=== PATIENT | male | born 1955 | race Caucasian/White ===

== ENCOUNTER 2019-03-07 11:47 | Inpatient (IN) | payer MEDICARE, OTHER ==
[2019-03-07] VITALS (10 sets, daily range): BP systolic 97–133; BP diastolic 51–83
[~2019-03-07] VITALS: Ht 180.3 cm; Wt 153.9 kg
[~2019-03-07 11:47] MED LIST: epiNEPHrine 0.1mg/ml 10ml syringe ONE; sodium bicarbonate (8.4%) inj. 1 MEQ/ML ML ONE
[2019-03-07] MEDS ORDERED: propofol 1000mg/100ml bottle 100 ML IV ONE (12:01)
[2019-03-07 12:05] LABS: ABG BASE EXCESS -18.8 mmol/L (-2.0-3.0); ABG HCO3 16.5 mmol/L (22.0-26.0); ABG OXYGEN SATURATION 99.3 % (95-98); ABG PCO2 (T) 93.7 mmHg (35.0-45.0); ABG PH (T) 6.864 (7.350-7.450); ABG PO2 (T) 404.4 mmHg (83-108); ALLEN'S TEST Positive; FCOHb 0.8 % (0.5-1.5); FMetHb 0.4 % (0.3-1.12); FO2Hb 98.1 % (94-100); MINUTE VOLUME 5 L/min; PEEP 8 cm H2O; RESPIRATORY RATE 18 b/min; RESPIRATORY RATE (OBSERVED) 18 b/min; TIDAL VOLUME 254 mL; TOTAL HEMOGLOBIN 14.8 G/dl (14.0-17.9)
--- NOTE | 2019-03-07 12:07 | NUR ---
dr. Bello and Balta at bedside.
--- NOTE | 2019-03-07 12:09 | NUR ---
patient on [address]
[2019-03-07] MEDS ORDERED: albuterol 2.5 MG/3 ML nebule NEB ONE ×3 (12:10→12:55)
[2019-03-07] MEDS ORDERED: albuterol 2.5 MG/3 ML nebule ONE (12:10)
--- NOTE | 2019-03-07 12:10 | NUR ---
dr. wick at bedside to start right IJ,Dr. Gifford to start right art line.
[2019-03-07] MEDS ORDERED: Neutra Phos packet PO PRN (12:15)
[2019-03-07] MEDS ORDERED: acetaminophen 325mg tablet PO PRN ×2 (12:15)
[2019-03-07] MEDS ORDERED: ondansetron/PF 4mg/2ml inj IV PRN (12:15)
[2019-03-07] MEDS ORDERED: potassium Cl 20mEq/100mL bag 100 ML IV PRN (12:15)
[2019-03-07] MEDS ORDERED: potassium Cl 20 mEq SR tablet PO PRN ×2 (12:15)
[2019-03-07] MEDS ORDERED: albuterol 2.5 MG/3 ML nebule NEB PRN ×2 (12:15→12:50)
[2019-03-07] MEDS ORDERED: morphine 4 MG/ML inj SYRINge IV PRN (12:15)
[2019-03-07] MEDS ORDERED: magnesium 4gm in 100ml NS 100 ML IV PRN (12:15)
[2019-03-07] MEDS ORDERED: morphine 2 MG/ML inj. syringe IV PRN (12:15)
[2019-03-07] MEDS ORDERED: magnesium Cl slow-release 64mg tablet PO PRN (12:15)
[2019-03-07] MEDS ORDERED: pantoprazole 40 MG vial IV SCH (12:15)
[2019-03-07] MEDS ORDERED: vancomycin/NS 1 GM ADD-VANTAGE 250 ML IV ONE (12:15)
[2019-03-07] MEDS ORDERED: ipratropium/albuterol 3ml nebule NEB PRN (12:15)
[2019-03-07] MEDS ORDERED: sodium phosphate inj. 15 MMOL in dextrose 5%-water 150 ML IV PRN (12:15)
[2019-03-07] MEDS ORDERED: acetaminophen 650mg rectal suppository RC PRN (12:15)
[2019-03-07] MEDS ORDERED: CefTRIAXone 2gm/D5W 50ml 50 ML IV ONE (12:15)
[2019-03-07] MEDS ORDERED: sodium phosphate inj. 30 MMOL in dextrose 5%-water 250 ML IV PRN (12:15)
[2019-03-07 12:23] LABS: CLARITY,URINE CLEAR (Clear); COLOR,URINE YELLOW (Yellow); GLUCOSE, URINE 100 mg/dl (Neg); KETONES,URINE NEGATIVE (Neg); LEUKOCYTE ESTERASE ,URINE NEGATIVE (Neg); NITRITES, URINE NEGATIVE (Neg); OCCULT BLOOD,URINE TRACE-INTACT (Neg); PH,URINE 7.5 (4.8-8.0); PROTEIN,URINE 100 mg/dl (Neg); UROBILINOGEN,URINE 0.2 E.U/dL (0.2-1.0)
[2019-03-07 12:24] LABS: UA COLLECTION TYPE FOLEY CATH
[2019-03-07 12:25] LABS: BASOPHILS # (AUTO) 0.1 X10'3 (0-0.2); BASOPHILS % (AUTO) 0.4 % (0-1); EOSINOPHILS # (AUTO) 0.5 X10'3 (0-0.9); EOSINOPHILS % (AUTO) 3.5 % (0-6); HEMATOCRIT 45.5 % (42.0-52.0); HEMOGLOBIN 14.6 g/dl (14.0-17.9); LYMPHOCYTES # (AUTO) 4.3 X10'3 (1.1-4.8); MEAN CORPUSCULAR HEMOGLOBIN 29.6 PG (27.0-31.0); MEAN CORPUSCULAR VOLUME 92.3 FL (78-98); MEAN PLATELET VOLUME 8.6 FL (7.4-10.4); MONOCYTES % (AUTO) 6.9 % (2-12); NEUTROPHILS # (AUTO) 8.1 X10'3 (1.8-7.7); NEUTROPHILS % (AUTO) 58.2 % (42-75); PLATELET COUNT 231 X10'3 (140-440); RED BLOOD COUNT 4.93 X10'6 (4.70-6.10); RED CELL DISTRIBUTION WIDTH 14.1 % (11.5-14.5)
--- NOTE | 2019-03-07 12:25 | NUR ---
propofol increased to 15mcg/hr.
[2019-03-07 12:32] LABS: MUCUS STRANDS FEW /LPF (Neg); SQUAMOUS EPITHELIAL CELL,UR MANY /LPF (FEW)
[2019-03-07] MEDS: vancomycin/NS 1 GM ADD-VANTAGE 250 ML IV SCH ×2 (12:33→13:45)
[2019-03-07 12:34] LABS: WBC,URINE 0-4 /HPF (0-4)
[2019-03-07 12:36] LABS: BACTERIA,URINE 1+ /HPF (Neg)
[2019-03-07 12:42] LABS: ALANINE AMINOTRANSFERASE 31 U/L (12-78); ALBUMIN 2.7 G/DL (3.4-5.0); ALBUMIN/GLOBULIN RATIO 0.8 (1.1-1.5); ALKALINE PHOSPHATASE 70 IU/L (46-116); ANION GAP 17 (8-16); ASPARTATE AMINO TRANSFERASE 22 U/L (10-37); BILIRUBIN,TOTAL 0.5 MG/DL (0.1-1.0); BLOOD UREA NITROGEN 13 MG/DL (7-18); CALCIUM 7.8 MG/DL (8.5-10.1); CHLORIDE 105 MMOL/L (99-107); CREATININE 1.45 MG/DL (0.60-1.10); GLUCOSE 269 MG/DL (70-104); MAGNESIUM 1.8 MG/DL (1.5-2.4); PHOSPHORUS 6.8 MG/DL (2.3-4.5); POTASSIUM 4.7 MMOL/L (3.5-5.1); SODIUM 142 MMOL/L (135-145); TOTAL CARBON DIOXIDE 20.2 MMOL/L (24-32); TOTAL PROTEIN 6.2 G/DL (6.4-8.2); eGFR 49 ML/MIN
[2019-03-07] MEDS ORDERED: albuterol 2.5 mg/0.5ml nebule NEB STA (12:46)
[2019-03-07] MEDS ORDERED: fentaNYL/PF 50MCG/1 ML 2ML syringe IV PRN (12:50)
[2019-03-07] MEDS ORDERED: midazolam 2 mg/2 ml injection IV ONE (12:50)
--- NOTE | 2019-03-07 12:52 | NUR ---
tube 24cm to teeth.
[2019-03-07 12:56] LABS: AMYLASE 46 U/L (25-115); C-REACTIVE PROTEIN 0.37 MG/DL (0.0-0.5); LIPASE 96 U/L (73-393)
[2019-03-07 12:59] LABS: D-DIMER 26.11 MG/L FEU (0-0.50); PARTIAL THROMBOPLASTIN TIME 35 SECONDS (22-32)
[2019-03-07] MEDS ORDERED: rocuronium 10mg/ml inj IV ONE (13:00)
--- NOTE | 2019-03-07 13:06 | NUR ---
per dr. perez increase propofol to 30mcg,order noted and carried out.
[2019-03-07 13:10] LABS: TOTAL CELLS COUNTED 100
[2019-03-07 13:13] LABS: ACANTHOCYTES 1+; PLATELET ESTIMATE NORMAL; POLYCHROMASIA 1+; TEAR DROP CELLS 1+
[2019-03-07 13:14] LABS: LARGE PLATELETS FEW
--- NOTE | 2019-03-07 13:15 | NUR ---
Patient in room CICU 2009. I have received report from JIG BORING MACHINE SET UP OPERATOR and had the opportunity to ask questions and assume patient care.
[2019-03-07] MEDS: midazolam 100mg in NS 100ml 100 ML IV PRN (13:26)
[2019-03-07] MEDS: FENTANYL-0.9 % NACL/PF 100 ML IV PRN (13:26)
[2019-03-07] MEDS ORDERED: albuterol 2.5 MG/3 ML nebule CONTNEB PRN (13:30)
[2019-03-07] MEDS ORDERED: heparin 25,000 UNIT/250ml bag 250 ML IV SCH ×2 (13:38→13:50)
[2019-03-07] MEDS ORDERED: glucagon, human recombinant 1mg kit SUBCUT PRN (13:40)
[2019-03-07] MEDS ORDERED: insulin regular, human vial - multi-dose SQ SCH (13:40)
[2019-03-07] MEDS ORDERED: dextrose ORAL solution 15 GM/59 ML bottle PO PRN ×2 (13:40)
[2019-03-07] MEDS ORDERED: dextrose 50%-water 50ml dispensing syringe IV PRN ×3 (13:40→13:45)
[2019-03-07] MEDS ORDERED: MESSAGE TO PHARMACY PO ONE (13:40)
[2019-03-07] MEDS ORDERED: heparin 10,000 units/1 ML INJ IV PRN (13:40)
[2019-03-07] MEDS ORDERED: heparin 10,000 units/1 ML INJ IV ONE (13:40)
[2019-03-07] MEDS ORDERED: insulin regular, human inj. 100 UNITS in normal saline 100ml IV soln 100 ML IV SCH ×2 (13:45)
--- NOTE | 2019-03-07 14:00 | NUR ---
Pt is intubated, tachypneic, difficult to ventilate, sedated, frequent generalized seizure activity noted. Dr. Gifford aware, IV keppra ordered received and given. EEG and echo completed at bedside.
[2019-03-07 14:01] LABS: ABG HCO3 21.1 mmol/L (22.0-26.0); ABG OXYGEN SATURATION 87.9 % (95-98); ABG PCO2 (T) 66.8 mmHg (35.0-45.0); ABG PH (T) 7.111 (7.350-7.450); ABG PO2 (T) 64.4 mmHg (83-108); FCOHb 1.6 % (0.5-1.5); FMetHb 0.3 % (0.3-1.12); FO2Hb 86.2 % (94-100); MINUTE VOLUME 9 L/min; PEEP 10 cm H2O; RESPIRATORY RATE 12 b/min; RESPIRATORY RATE (OBSERVED) 34 b/min; TIDAL VOLUME 450 mL; TOTAL HEMOGLOBIN 15.8 G/dl (14.0-17.9)
[2019-03-07 14:01] LABS: OXYGEN SATURATION (MIXED VEN) 82.7 % (60-80); PO2 MIXED VENOUS (TEMP COR) 54.4 mmHg (35-46)
[2019-03-07] MEDS ORDERED: levetiracetam inj 1,000 MG in normal saline 100ml IV soln 90 ML IV SCH (14:10)
[2019-03-07 14:35] LABS: HEMOGLOBIN A1C 6.1 % (4.5-6.2)
[2019-03-07] MEDS: propofol 1000mg/100ml bottle 100 ML IV SCH (14:37)
[2019-03-07] MEDS: levetiracetam inj 1,000 MG in normal saline 100ml IV soln 90 ML IV SCH ×2 (14:39→21:10)
[2019-03-07] MEDS: methylPREDNISolone sod succ 125mg/2ml vial IV SCH ×2 (14:56→21:10)
[2019-03-07] MEDS: ipratropium/albuterol 3ml nebule NEB SCH ×3 (15:00→23:12)
[2019-03-07] MEDS ORDERED: normal saline 1000ml 1,000 ML IV ONE (15:40)
[2019-03-07] MEDS ORDERED: Levetiracetam-NS 500mg/100ml 100 ML IV ONE (15:55)
--- NOTE | 2019-03-07 16:00 | NUR ---
Dr. Gifford notified regarding hypotension, 1L NS bolus order received and given to keep CVP > 14. titrating sedation to keep RR <16. nimbex to be started if pt does not respond to sedation.
[2019-03-07] MEDS: CISatracurium besylate inj. 100 MG in dextrose 5%-water 50ml 40 ML IV PRN (16:32)
[2019-03-07] MEDS ORDERED: NO HOME MEDS (17:12)
[2019-03-07] MEDS ORDERED: HYDR-4353 PO (17:34)
[2019-03-07] MEDS ORDERED: CLOP75TA15 PO (17:45)
[2019-03-07] MEDS ORDERED: ASPI-611 PO (17:45)
[2019-03-07] MEDS ORDERED: NITR0.4T51 SL (17:45)
[2019-03-07] MEDS ORDERED: LANTUS SQ (17:45)
[2019-03-07] MEDS ORDERED: BENA40TA73 PO (17:45)
[2019-03-07] MEDS ORDERED: CARV-50 PO (17:45)
[2019-03-07] MEDS ORDERED: BUSP10TA11 PO (17:45)
[2019-03-07] MEDS ORDERED: FURO-150 PO (17:45)
[2019-03-07] MEDS ORDERED: ATOR40TA PO (17:45)
[2019-03-07] MEDS: insulin Lispro (HumaLOG) vial - multi-dose SQ SCH (18:00)
--- NOTE | 2019-03-07 18:00 | NUR ---
Nimbex started at 1630, titrated sedation off to maintain NSR, pt is sinus jeison. Dr. Garcia called and notified, order received to keep nimbex on, titrate fentanyl down and versed up to keep pt well sedated on paralytic. Updated family on plan of care.
[2019-03-07 18:25] LABS: ALBUMIN 2.6 G/DL (3.4-5.0); ANION GAP 7 (8-16); BLOOD UREA NITROGEN 19 MG/DL (7-18); BUN/CREATININE RATIO 14.3 (5.4-32.0); CALCIUM 7.4 MG/DL (8.5-10.1); CHLORIDE 112 MMOL/L (99-107); CREATININE 1.33 MG/DL (0.60-1.10); GLUCOSE 99 MG/DL (70-104); MAGNESIUM 1.8 MG/DL (1.5-2.4); POTASSIUM 4.3 MMOL/L (3.5-5.1); SODIUM 145 MMOL/L (135-145); eGFR 54 ML/MIN
--- NOTE | 2019-03-07 18:30 | NUR ---
Patient in room CICU 2009. I have received report from Joya LAKE and had the opportunity to ask questions and assume patient care.
[2019-03-07] MEDS: K, MAG and/or Phos replacement - Verify level? MC SCH (18:32)
--- NOTE | 2019-03-07 18:45 | NUR ---
Problems reprioritized. Patient report given, questions answered & plan of care reviewed with Jarrett Gamino.
[2019-03-07 19:21] LABS: ABG BASE EXCESS -8.5 mmol/L (-2.0-3.0); ABG HCO3 22.6 mmol/L (22.0-26.0); ABG OXYGEN SATURATION 96.5 % (95-98); ABG PCO2 (T) 58.6 mmHg (35.0-45.0); ABG PH (T) 7.173 (7.350-7.450); ABG PO2 (T) 77.5 mmHg (83-108); ALLEN'S TEST Positive; FCOHb 0.6 % (0.5-1.5); FMetHb 0.3 % (0.3-1.12); FO2Hb 95.6 % (94-100); MINUTE VOLUME 6 L/min; PEEP 10 cm H2O; RESPIRATORY RATE 12 b/min; RESPIRATORY RATE (OBSERVED) 12 b/min; TIDAL VOLUME 450 mL; TOTAL HEMOGLOBIN 15.1 G/dl (14.0-17.9)
[2019-03-07] MEDS ORDERED: heparin, porcine 5000 units/ml vial SQ SCH (20:00)
[2019-03-07] MEDS ORDERED: enoxaparin 80mg/0.8ml syringe SUBCUT SCH ×2 (20:00)
[2019-03-07] MEDS: insulin glargine (Lantus) pen - multi-dose SQ SCH (20:50)
[2019-03-07 20:55] LABS: OXYGEN SATURATION (MIXED VEN) 84.1 % (60-80); PO2 MIXED VENOUS (TEMP COR) 37.8 mmHg (35-46)
--- NOTE | 2019-03-07 21:00 | NUR ---
BIS monitor placed, reading less than 10. Shala Salazar NP aware. Pt on Nimbex and TOF which has been 4/4 twitches on setting of 5-6. Pt has minimal break through facial spasms and is breathing along with the vent set rate. Sedation gtt along with paralytic for hypothermia protocol.
[2019-03-07 21:24] LABS: CKMB RELATIVE INDEX 1.6 RATIO (0-2.5); PHOSPHORUS 4.2 MG/DL (2.3-4.5)
[2019-03-08] VITALS (21 sets, daily range): BP systolic 81–160; BP diastolic 49–107
[2019-03-08] MEDS: methylPREDNISolone sod succ 125mg/2ml vial IV SCH ×4 (02:11→19:46)
[2019-03-08 02:53] LABS: ALANINE AMINOTRANSFERASE 40 U/L (12-78); ALBUMIN 2.6 G/DL (3.4-5.0); ALBUMIN/GLOBULIN RATIO 0.8 (1.1-1.5); ALKALINE PHOSPHATASE 60 IU/L (46-116); ANION GAP 10 (8-16); ASPARTATE AMINO TRANSFERASE 38 U/L (10-37); BILIRUBIN,TOTAL 0.4 MG/DL (0.1-1.0); BLOOD UREA NITROGEN 24 MG/DL (7-18); BUN/CREATININE RATIO 20.3 (5.4-32.0); CALCIUM 7.3 MG/DL (8.5-10.1); CHLORIDE 109 MMOL/L (99-107); CREATININE 1.18 MG/DL (0.60-1.10); GLUCOSE 138 MG/DL (70-104); POTASSIUM 4.4 MMOL/L (3.5-5.1); SODIUM 143 MMOL/L (135-145); TOTAL CARBON DIOXIDE 24.1 MMOL/L (24-32); TOTAL PROTEIN 5.9 G/DL (6.4-8.2); eGFR 62 ML/MIN
[2019-03-08 02:54] LABS: MAGNESIUM 1.8 MG/DL (1.5-2.4); PHOSPHORUS 3.8 MG/DL (2.3-4.5); TRIGLYCERIDES 36 MG/DL (20-135)
[2019-03-08 03:02] LABS: BASOPHILS % (AUTO) 0.1 % (0-1); EOSINOPHILS % (AUTO) 0 % (0-6); HEMATOCRIT 43.6 % (42.0-52.0); HEMOGLOBIN 14.3 g/dl (14.0-17.9); LYMPHOCYTES # (AUTO) 0.5 X10'3 (1.1-4.8); MEAN CORPUSCULAR HEMOGLOBIN 29.2 PG (27.0-31.0); MEAN CORPUSCULAR HGB CONC 32.9 g/dL (33.0-36.5); MEAN CORPUSCULAR VOLUME 88.9 FL (78-98); MEAN PLATELET VOLUME 7.7 FL (7.4-10.4); MONOCYTES # (AUTO) 0.1 X10'3 (0-0.9); MONOCYTES % (AUTO) 1.1 % (2-12); NEUTROPHILS # (AUTO) 11.3 X10'3 (1.8-7.7); NEUTROPHILS % (AUTO) 94.8 % (42-75); PLATELET COUNT 156 X10'3 (140-440); RED BLOOD COUNT 4.91 X10'6 (4.70-6.10); RED CELL DISTRIBUTION WIDTH 13.8 % (11.5-14.5); WHITE BLOOD COUNT 11.9 X10'3 (4.5-11.0)
[2019-03-08] MEDS: ipratropium/albuterol 3ml nebule NEB SCH ×6 (03:20→23:34)
[2019-03-08 03:36] LABS: OXYGEN SATURATION (MIXED VEN) 87.3 % (60-80); PO2 MIXED VENOUS (TEMP COR) 41.1 mmHg (35-46)
[2019-03-08 03:36] LABS: ABG BASE EXCESS -9.2 mmol/L (-2.0-3.0); ABG HCO3 19.6 mmol/L (22.0-26.0); ABG OXYGEN SATURATION 98.2 % (95-98); ABG PCO2 (T) 43.9 mmHg (35.0-45.0); ABG PH (T) 7.242 (7.350-7.450); ABG PO2 (T) 100.5 mmHg (83-108); ALLEN'S TEST Positive; FCOHb 0.3 % (0.5-1.5); FMetHb 0.3 % (0.3-1.12); FO2Hb 97.6 % (94-100); MINUTE VOLUME 7 L/min; PATIENT TEMPERATURE 32.5; PEEP 10 cm H2O; RESPIRATORY RATE 16 b/min; RESPIRATORY RATE (OBSERVED) 16 b/min; TIDAL VOLUME 450 mL; TOTAL HEMOGLOBIN 15.3 G/dl (14.0-17.9)
[2019-03-08] MEDS: FENTANYL-0.9 % NACL/PF 100 ML IV PRN ×2 (05:36→17:49)
--- NOTE | 2019-03-08 06:15 | NUR ---
Patient in room CICU 2009. I have received report from material handler 2nd shift and had the opportunity to ask questions and assume patient care.
--- NOTE | 2019-03-08 06:37 | NUR ---
Problems reprioritized. Patient report given, questions answered & plan of care reviewed with Mary LAKE.
[2019-03-08] MEDS: ESOMEPRAZOLE 40 MG VIAL IV SCH (08:01)
[2019-03-08] MEDS: CISatracurium besylate inj. 100 MG in dextrose 5%-water 50ml 40 ML IV PRN (08:02)
[2019-03-08] MEDS: midazolam 100mg in NS 100ml 100 ML IV PRN (08:02)
[2019-03-08] MEDS: levetiracetam inj 1,000 MG in normal saline 100ml IV soln 90 ML IV SCH ×2 (08:03→19:46)
[2019-03-08] MEDS: K, MAG and/or Phos replacement - Verify level? MC SCH (08:24)
[2019-03-08 08:46] LABS: ALBUMIN 2.7 G/DL (3.4-5.0); ANION GAP 13 (8-16); BLOOD UREA NITROGEN 24 MG/DL (7-18); BUN/CREATININE RATIO 23.1 (5.4-32.0); CALCIUM 7.2 MG/DL (8.5-10.1); CHLORIDE 109 MMOL/L (99-107); CREATINE KINASE 421 U/L (39-308); CREATININE 1.04 MG/DL (0.60-1.10); GLUCOSE 133 MG/DL (70-104); MAGNESIUM 1.6 MG/DL (1.5-2.4); SODIUM 144 MMOL/L (135-145); TOTAL CARBON DIOXIDE 22.3 MMOL/L (24-32); eGFR 72 ML/MIN
[2019-03-08 08:48] LABS: CKMB RELATIVE INDEX 4.7 RATIO (0-2.5)
[2019-03-08] MEDS ORDERED: iohexol 350MG/ML 100ml bottle IV ONE (08:55)
[2019-03-08] MEDS: insulin Lispro (HumaLOG) vial - multi-dose SQ SCH ×2 (09:00→11:57)
[2019-03-08 09:20] LABS: TROPONIN I 1.88 NG/ML (0.0-0.05)
--- NOTE | 2019-03-08 10:21 | NUR ---
Initial: Pt intubated s/p code currently on cooling protocol w/ rewarming to end at 1PM per MD note today. Kelby 11 w/ skin intact. Pending EEG given seizures. CVA vs PE or rhythm per MD note. Hx T2DM A1C <7 receiving insulin and solumedrol. Will monitor for nutrition support needs s/p cooling if prolonged intubation. MAP 109. Recs below. Rec: 1. IF TF; Vital High Protein at 105ml/hr goal; to provide 2520ml fluid, 2520kcals, 2117ml free water, and 221g protein. 2. IF TF; water flush 150ml Q4 3. IF TF; prealbumin Q /, daily wts 4. Upon extubation advance diet as medically indicated to heart healthy/carb controlled Addendum: 03/08/19 at [address] Amended: Links added.
[2019-03-08 11:36] LABS: OXYGEN SATURATION (MIXED VEN) 78.5 % (60-80); PO2 MIXED VENOUS (TEMP COR) 30.7 mmHg (35-46)
[2019-03-08 11:41] LABS: ABG BASE EXCESS -8.8 mmol/L (-2.0-3.0); ABG HCO3 18.9 mmol/L (22.0-26.0); ABG OXYGEN SATURATION 94.6 % (95-98); ABG PCO2 (T) 39.6 mmHg (35.0-45.0); ABG PH (T) 7.276 (7.350-7.450); ABG PO2 (T) 58.8 mmHg (83-108); FCOHb 0.2 % (0.5-1.5); FMetHb 0.2 % (0.3-1.12); FO2Hb 94.2 % (94-100); MINUTE VOLUME 17 L/min; PATIENT TEMPERATURE 33.2; PEEP 16 cm H2O; RESPIRATORY RATE 16 b/min; RESPIRATORY RATE (OBSERVED) 27 b/min; TIDAL VOLUME 600 mL; TOTAL HEMOGLOBIN 16.3 G/dl (14.0-17.9)
[2019-03-08] MEDS ORDERED: LORazepam 2 mg/ml vial ONE (11:49)
[2019-03-08] MEDS: magnesium 2GM in 50ml NS 50 ML IV PRN (11:50)
[2019-03-08] MEDS: methylnaltrexone br 12mg/0.6ml inj***SubQ only SQ SCH (11:51)
[2019-03-08] MEDS: LORazepam 2 mg/ml vial IV PRN ×5 (11:51→21:29)
[2019-03-08] MEDS: propofol 1000mg/100ml bottle 100 ML IV SCH (11:57)
[2019-03-08 14:22] LABS: ALBUMIN 2.5 G/DL (3.4-5.0); ANION GAP 14 (8-16); BLOOD UREA NITROGEN 24 MG/DL (7-18); BUN/CREATININE RATIO 22.6 (5.4-32.0); CALCIUM 7.4 MG/DL (8.5-10.1); CHLORIDE 107 MMOL/L (99-107); CREATININE 1.06 MG/DL (0.60-1.10); GLUCOSE 152 MG/DL (70-104); POTASSIUM 4.1 MMOL/L (3.5-5.1); SODIUM 142 MMOL/L (135-145); TOTAL CARBON DIOXIDE 20.8 MMOL/L (24-32); eGFR 71 ML/MIN
[2019-03-08] MEDS: mineral oil/petrolatum ophthal oint EACHEYE SCH ×2 (14:34→20:13)
[2019-03-08] MEDS: normal saline 1000ml 1,000 ML IV SCH (16:57)
--- NOTE | 2019-03-08 18:30 | NUR ---
Patient in room CICU 2009. I have received report from JAYA Starks and had the opportunity to ask questions and assume patient care.
--- NOTE | 2019-03-08 18:31 | NUR ---
Problems reprioritized. Patient report given, questions answered & plan of care reviewed with oncoming shift.
[2019-03-08] MEDS: enoxaparin 100mg/ml syringe SUBCUT SCH (19:49)
[2019-03-08 20:46] LABS: ALBUMIN 2.7 G/DL (3.4-5.0); ANION GAP 14 (8-16); BLOOD UREA NITROGEN 24 MG/DL (7-18); BUN/CREATININE RATIO 21.1 (5.4-32.0); CALCIUM 7.5 MG/DL (8.5-10.1); CHLORIDE 108 MMOL/L (99-107); CREATININE 1.14 MG/DL (0.60-1.10); GLUCOSE 153 MG/DL (70-104); POTASSIUM 4.2 MMOL/L (3.5-5.1); SODIUM 142 MMOL/L (135-145); TOTAL CARBON DIOXIDE 20.3 MMOL/L (24-32); eGFR 65 ML/MIN
[2019-03-08] MEDS: insulin glargine (Lantus) pen - multi-dose SQ SCH (21:00)
--- NOTE | 2019-03-08 22:14 | NUR ---
Shaorn Salazar, PATHOLOGY LABORATORY AIDE at bedside. Discussed that the patient has a lower BP MAP in the 60's. Patient is possible dry, BP responds to leg elevation with an increase in MAP to the 70's. 250ml Fluid bolus administered. Order for second bolus of 250ml given. Will continue to monitor.
[2019-03-08] MEDS ORDERED: normal saline 500ml IV soln 500 ML IV ONE (22:15)
[2019-03-08] MEDS: dextrose 5%-1/2 normal saline 1,000 ML IV SCH (22:35)
--- NOTE | 2019-03-08 22:55 | NUR ---
Phone call to Sharon Salazar NP. Patients MAP below 60 after fluid bolus and change in fluid rate. Order for Levophed start at 2mcg/min to maintain MAP greater than 60. Order per protocol.
[2019-03-08] MEDS: NORepinephrine 8mg/ 250ml NS 250 ML IV SCH (23:02)
[2019-03-08 23:05] LABS: CKMB RELATIVE INDEX 6.4 RATIO (0-2.5); CREATINE KINASE 428 U/L (39-308)
[2019-03-08 23:07] LABS: TROPONIN I 2.17 NG/ML (0.0-0.05)
[2019-03-09] VITALS (25 sets, daily range): BP systolic 83–136; BP diastolic 53–105
[2019-03-09] MEDS: LORazepam 2 mg/ml vial IV PRN ×3 (00:22→22:29)
[2019-03-09] MEDS ORDERED: VANCOMYCIN LEVEL IV ONE ×2 (00:30→07:30)
[2019-03-09] MEDS: propofol 1000mg/100ml bottle 100 ML IV SCH ×2 (01:13→05:47)
[2019-03-09] MEDS: mineral oil/petrolatum ophthal oint EACHEYE SCH ×4 (02:34→20:00)
[2019-03-09] MEDS: methylPREDNISolone sod succ 125mg/2ml vial IV SCH ×4 (02:34→19:58)
[2019-03-09] MEDS: ipratropium/albuterol 3ml nebule NEB SCH ×6 (02:48→23:25)
--- NOTE | 2019-03-09 03:00 | NUR ---
Lower urine output discussed with Shala Salazar NP. No change in orders.
[2019-03-09 03:05] LABS: ALBUMIN 2.5 G/DL (3.4-5.0); ANION GAP 13 (8-16); BLOOD UREA NITROGEN 28 MG/DL (7-18); BUN/CREATININE RATIO 21.7 (5.4-32.0); CALCIUM 7.3 MG/DL (8.5-10.1); CHLORIDE 107 MMOL/L (99-107); CREATININE 1.29 MG/DL (0.60-1.10); GLUCOSE 203 MG/DL (70-104); MAGNESIUM 1.8 MG/DL (1.5-2.4); POTASSIUM 4.1 MMOL/L (3.5-5.1); SODIUM 140 MMOL/L (135-145); TOTAL CARBON DIOXIDE 20.2 MMOL/L (24-32); eGFR 56 ML/MIN
[2019-03-09] MEDS: insulin Lispro (HumaLOG) vial - multi-dose SQ SCH ×2 (03:15→08:49)
[2019-03-09 03:25] LABS: BASOPHILS % (AUTO) 0.1 % (0-1); EOSINOPHILS % (AUTO) 0 % (0-6); HEMATOCRIT 40.6 % (42.0-52.0); HEMOGLOBIN 13.7 g/dl (14.0-17.9); LYMPHOCYTES # (AUTO) 0.8 X10'3 (1.1-4.8); MEAN CORPUSCULAR HEMOGLOBIN 29.4 PG (27.0-31.0); MEAN CORPUSCULAR HGB CONC 33.8 g/dL (33.0-36.5); MEAN CORPUSCULAR VOLUME 87.2 FL (78-98); MEAN PLATELET VOLUME 8.4 FL (7.4-10.4); MONOCYTES # (AUTO) 0.6 X10'3 (0-0.9); MONOCYTES % (AUTO) 3.1 % (2-12); NEUTROPHILS # (AUTO) 17.8 X10'3 (1.8-7.7); NEUTROPHILS % (AUTO) 92.8 % (42-75); PLATELET COUNT 206 X10'3 (140-440); RED BLOOD COUNT 4.66 X10'6 (4.70-6.10); RED CELL DISTRIBUTION WIDTH 13.6 % (11.5-14.5); WHITE BLOOD COUNT 19.2 X10'3 (4.5-11.0)
[2019-03-09] MEDS: magnesium 2GM in 50ml NS 50 ML IV PRN (03:25)
[2019-03-09 04:17] LABS: ALANINE AMINOTRANSFERASE 35 U/L (12-78); ALBUMIN/GLOBULIN RATIO 0.8 (1.1-1.5); ALKALINE PHOSPHATASE 50 IU/L (46-116); ASPARTATE AMINO TRANSFERASE 39 U/L (10-37); BILIRUBIN,TOTAL 0.5 MG/DL (0.1-1.0); PHOSPHORUS 3.9 MG/DL (2.3-4.5); TOTAL PROTEIN 5.5 G/DL (6.4-8.2)
[2019-03-09 05:15] LABS: OXYGEN SATURATION (MIXED VEN) 90.5 % (60-80); PO2 MIXED VENOUS (TEMP COR) 55.3 mmHg (35-46)
[2019-03-09 05:21] LABS: ABG BASE EXCESS -8.3 mmol/L (-2.0-3.0); ABG HCO3 17.9 mmol/L (22.0-26.0); ABG OXYGEN SATURATION 98.7 % (95-98); ABG PCO2 (T) 37.2 mmHg (35.0-45.0); ABG PH (T) 7.294 (7.350-7.450); ABG PO2 (T) 130.4 mmHg (83-108); ALLEN'S TEST Positive; FCOHb 0.1 % (0.5-1.5); FMetHb 0.4 % (0.3-1.12); FO2Hb 98.2 % (94-100); MINUTE VOLUME 11 L/min; PATIENT TEMPERATURE 35.7; PEEP 15 cm H2O; RESPIRATORY RATE 16 b/min; RESPIRATORY RATE (OBSERVED) 16 b/min; TIDAL VOLUME 600 mL; TOTAL HEMOGLOBIN 14.5 G/dl (14.0-17.9)
--- NOTE | 2019-03-09 06:21 | NUR ---
Problems reprioritized. Patient report given, questions answered & plan of care reviewed with JAYA Stallworth.
--- NOTE | 2019-03-09 06:30 | NUR ---
Patient in room CICU 2009. I have received report from Archana Varghese RN and had the opportunity to ask questions and assume patient care.
[2019-03-09] MEDS: enoxaparin 100mg/ml syringe SUBCUT SCH ×2 (07:49→19:58)
[2019-03-09] MEDS: ESOMEPRAZOLE 40 MG VIAL IV SCH (07:49)
[2019-03-09] MEDS: levetiracetam inj 1,000 MG in normal saline 100ml IV soln 90 ML IV SCH (07:50)
[2019-03-09] MEDS: K, MAG and/or Phos replacement - Verify level? MC SCH (07:55)
[2019-03-09] MEDS ORDERED: methylnaltrexone br 12mg/0.6ml inj***SubQ only SQ SCH (08:00)
[2019-03-09 08:32] LABS: CKMB RELATIVE INDEX 5.3 RATIO (0-2.5); MAGNESIUM 2.4 MG/DL (1.5-2.4)
[2019-03-09 08:35] LABS: TROPONIN I 1.66 NG/ML (0.0-0.05); VANCOMYCIN,TROUGH 33.1 UG/ML (6.0-14.0)
[2019-03-09] MEDS: dextrose 5%-1/2 normal saline 1,000 ML IV SCH (10:00)
[2019-03-09] MEDS ORDERED: SPIR25TA5 PO (10:28)
[2019-03-09] MEDS ORDERED: METF750T46 PO (10:28)
[2019-03-09] MEDS ORDERED: TERB250T4 PO (10:28)
--- NOTE | 2019-03-09 11:00 | NUR ---
Updated Dr. Gifford and Multidisciplinary team during Critical Care rounds. Discussed need to start nutrition, turn off sedation until patient starts to respond appropriately. Attempt to use ativan prn for seizures instead of fentanyl and diprivan. and friends at bedside.
[2019-03-09] MEDS ORDERED: bisacodyl 10mg suppository rectal RC PRN (12:15)
[2019-03-09] MEDS ORDERED: lactulose 20gm/30ml cup PO PRN (12:15)
[2019-03-09 12:20] LABS: ISTAT CREATININE 0.9 mg/dL (0.8-1.3); ISTAT IONIZED CALCIUM 1.08 mmol/L (1.03-1.32); ISTAT K 4.6 mmol/L (3.5-5.1); POC BUN/CREATININE RATIO 15.6 (5.4-32.0)
[2019-03-09] MEDS ORDERED: HYDROcodone/acetaminophen 10/325mg tab PO PRN (12:35)
[2019-03-09] MEDS ORDERED: nitroGLYCERIN 0.4mg SUBLingual tab SL PRN (12:35)
--- NOTE | 2019-03-09 12:41 | NUR ---
Tube feeding consult, ok with MD to start TF, discussed with bedside RN. Recommendations are below. Initial: Pt intubated s/p code currently on cooling protocol w/ rewarming to end at 1PM per MD note today. Kelby 11 w/ skin intact. Pending EEG given seizures. CVA vs PE or rhythm per MD note. Hx T2DM A1C <7 receiving insulin and solumedrol. Will monitor for nutrition support needs s/p cooling if prolonged intubation. MAP 109. Recs below. Rec: 1. Continuous tube feeding with Vital High Protein at 105ml/hr goal, start at 30 ml/hr and advance by 30 ml q 8 hours to goal rate; to provide 2520ml fluid, 2520kcals, 2117ml free water, and 221g protein. 2. Additional water flush 150ml Q4 3. Prealbumin Q /, daily wts 4. When extubated advance diet as medically indicated to heart healthy/carb controlled Addendum: 03/09/19 at [address] Amended: Links added.
--- NOTE | 2019-03-09 13:09 | NUR ---
Dr. Gifford evaluated patient. Order to keep Fentanyl and Diprivan off as long as saturations maintain and resp rate does not get over 25/minute. Use ativan for seizures and stop keppra for now.
[2019-03-09] MEDS ORDERED: acetaminophen 325mg/10.15ml oral unit dose solution OGT PRN (15:08)
[2019-03-09] MEDS ORDERED: dextrose ORAL solution 15 GM/59 ML bottle OGT PRN ×2 (15:11)
[2019-03-09] MEDS ORDERED: lactulose 20gm/30ml cup OGT PRN (15:13)
[2019-03-09] MEDS ORDERED: Neutra Phos packet OGT PRN (15:15)
[2019-03-09] MEDS ORDERED: potassium Cl 20 mEq SR tablet OGT PRN ×2 (15:16→15:17)
[2019-03-09] MEDS: insulin regular, human vial - multi-dose SQ SCH ×2 (16:02→21:11)
[2019-03-09] MEDS ORDERED: CYAN100070 PO (16:04)
[2019-03-09] MEDS ORDERED: IBUP-1985 PO (16:04)
[2019-03-09] MEDS ORDERED: CARV25TA PO (16:04)
[2019-03-09] MEDS ORDERED: CYCL-394 PO (16:04)
[2019-03-09 17:16] LABS: OXYGEN SATURATION (MIXED VEN) 88.1 % (60-80); PO2 MIXED VENOUS (TEMP COR) 52.1 mmHg (35-46)
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
--- NOTE | 2019-03-09 18:34 | NUR ---
Patient in room CICU 2009. I have received report from JAYA Stallworth and had the opportunity to ask questions and assume patient care.
[2019-03-09] MEDS ORDERED: vasoPRESSIN 20 units/ml inj. ONE (18:44)
--- NOTE | 2019-03-09 19:04 | NUR ---
Problems reprioritized. Patient report given, questions answered & plan of care reviewed with Nyla LAKE.
--- NOTE | 2019-03-09 19:25 | NUR ---
July Luan DIRECTOR DRUG notified of patient going into a.fib with rvr HR in 140's. Patient's went back to sinus rhythm in 90's. no new orders at this time. will continue to monitor.
[2019-03-09] MEDS ORDERED: diltiazem 5mg/ml 5ml inj. IV ONE (19:40)
[2019-03-09] MEDS ORDERED: diltiazem-D5W 125mg/125ml 125 ML IV SCH (19:40)
--- NOTE | 2019-03-09 19:45 | NUR ---
Patient in and out of a. fib with rvr. received orders from July LORRIE Salazar to start cardizem drip if patient's HR sustains in a rapid rhythm. Currently patient is in sinus in 90's and low 100's. Will continue to monitor.
[2019-03-09] MEDS ORDERED: diltiazem-NS 100mg/100ml 100 ML IV SCH (19:50)
[2019-03-09] MEDS: busPIRone 5mg tablet OGT SCH (19:58)
[2019-03-09] MEDS: carVEDilol 12.5mg tablet OGT SCH (19:59)
[2019-03-09] MEDS: lactobacillus rhamnosus 10,000 MMU CELLS/CAPSULE PO SCH (19:59)
[2019-03-09] MEDS ORDERED: BUSPIRONE HCL PO SCH (20:00)
[2019-03-09] MEDS ORDERED: insulin glargine (Lantus) pen - multi-dose SQ SCH (21:00)
[2019-03-09] MEDS: insulin glargine (Lantus) pen - multi-dose SQ SCH (21:12)
[2019-03-10] VITALS (23 sets, daily range): BP systolic 95–184; BP diastolic 48–121
[2019-03-10] MEDS: mineral oil/petrolatum ophthal oint EACHEYE SCH ×4 (01:40→20:36)
[2019-03-10] MEDS: methylPREDNISolone sod succ 125mg/2ml vial IV SCH ×4 (01:40→20:36)
--- NOTE | 2019-03-10 01:50 | NUR ---
July Martin,GROUP WORK PROGRAM DIRECTOR notified of patient's high residual of 450 and that water flush was held at 0000. 300cc put back per protocol. GROUP WORK PROGRAM DIRECTOR asked to recheck residuals in one hour and notify her of the findings.
[2019-03-10] MEDS: insulin regular, human vial - multi-dose SQ SCH ×3 (02:08→21:13)
[2019-03-10 02:43] LABS: BASOPHILS % (AUTO) 0.3 % (0-1); EOSINOPHILS % (AUTO) 0 % (0-6); LYMPHOCYTES # (AUTO) 0.5 X10'3 (1.1-4.8); LYMPHOCYTES % (AUTO) 2.7 % (21-51); MEAN CORPUSCULAR HEMOGLOBIN 29.3 PG (27.0-31.0); MEAN CORPUSCULAR HGB CONC 34.1 g/dL (33.0-36.5); MEAN CORPUSCULAR VOLUME 85.8 FL (78-98); MEAN PLATELET VOLUME 8.8 FL (7.4-10.4); MONOCYTES # (AUTO) 0.6 X10'3 (0-0.9); MONOCYTES % (AUTO) 3.6 % (2-12); NEUTROPHILS # (AUTO) 16.5 X10'3 (1.8-7.7); NEUTROPHILS % (AUTO) 93.4 % (42-75); PLATELET COUNT 182 X10'3 (140-440); RED BLOOD COUNT 4.43 X10'6 (4.70-6.10); RED CELL DISTRIBUTION WIDTH 14.3 % (11.5-14.5); WHITE BLOOD COUNT 17.7 X10'3 (4.5-11.0)
[2019-03-10 02:52] LABS: ALANINE AMINOTRANSFERASE 30 U/L (12-78); ALBUMIN 2.5 G/DL (3.4-5.0); ALBUMIN/GLOBULIN RATIO 0.8 (1.1-1.5); ALKALINE PHOSPHATASE 52 IU/L (46-116); ANION GAP 8 (8-16); ASPARTATE AMINO TRANSFERASE 35 U/L (10-37); BILIRUBIN,TOTAL 0.3 MG/DL (0.1-1.0); BLOOD UREA NITROGEN 37 MG/DL (7-18); BUN/CREATININE RATIO 23.1 (5.4-32.0); CALCIUM 7.6 MG/DL (8.5-10.1); CHLORIDE 107 MMOL/L (99-107); GLUCOSE 263 MG/DL (70-104); MAGNESIUM 2.2 MG/DL (1.5-2.4); POTASSIUM 3.8 MMOL/L (3.5-5.1); PREALBUMIN 19.3 MG/DL (19-36); SODIUM 140 MMOL/L (135-145); TOTAL CARBON DIOXIDE 25.3 MMOL/L (24-32); TOTAL PROTEIN 5.6 G/DL (6.4-8.2); eGFR 44 ML/MIN
--- NOTE | 2019-03-10 02:54 | NUR ---
July LORRIE Salazar notified that residuals remain high, measuring at 420cc. Orders given to give 300cc back and pause TF for 1 hour and then restart in hour if residuals are less than 300cc. Orders for reglan also given.
[2019-03-10] MEDS ORDERED: metoclopramide 5 mg/ml inj IV ONE ×2 (02:55→22:35)
[2019-03-10] MEDS: ipratropium/albuterol 3ml nebule NEB SCH ×6 (03:38→23:13)
[2019-03-10 04:46] LABS: ABG BASE EXCESS 0.7 mmol/L (-2.0-3.0); ABG HCO3 24.5 mmol/L (22.0-26.0); ABG PO2 (T) 78.6 mmHg (83-108); ALLEN'S TEST Positive; FCOHb 0.1 % (0.5-1.5); FMetHb 0.3 % (0.3-1.12); FO2Hb 95.6 % (94-100); MINUTE VOLUME 12 L/min; PATIENT TEMPERATURE 37.2; PEEP 8 cm H2O; RESPIRATORY RATE 16 b/min; RESPIRATORY RATE (OBSERVED) 18 b/min; TIDAL VOLUME 600 mL; TOTAL HEMOGLOBIN 13.7 G/dl (14.0-17.9)
[2019-03-10 04:46] LABS: OXYGEN SATURATION (MIXED VEN) 86.5 % (60-80); PO2 MIXED VENOUS (TEMP COR) 49.1 mmHg (35-46)
[2019-03-10] MEDS: LORazepam 2 mg/ml vial IV PRN (06:05)
--- NOTE | 2019-03-10 06:26 | NUR ---
Problems reprioritized. Patient report given, questions answered & plan of care reviewed with JAYA Santana.
--- NOTE | 2019-03-10 06:30 | NUR ---
Patient in room CICU 2009. I have received report from assembler 1st shift rn and had the opportunity to ask questions and assume patient care.
[2019-03-10] MEDS ORDERED: non-formulary drug (Benazepril Hcl* (Lotensin*) 1 TAB) PO SCH (08:00)
[2019-03-10] MEDS: lisinopril 20mg tablet OGT SCH (08:00)
[2019-03-10] MEDS ORDERED: non-formulary drug (Atorvastatin Calcium* (Lipitor*) 1 TAB) PO SCH (08:00)
[2019-03-10] MEDS: busPIRone 5mg tablet OGT SCH ×2 (08:00→20:36)
[2019-03-10] MEDS ORDERED: non-formulary drug (Aspirin (Aspir 81) 1 TAB) PO SCH (08:00)
[2019-03-10] MEDS: methylnaltrexone br 12mg/0.6ml inj***SubQ only SQ SCH (08:00)
[2019-03-10] MEDS: K, MAG and/or Phos replacement - Verify level? MC SCH (08:00)
[2019-03-10] MEDS: ESOMEPRAZOLE 40 MG VIAL IV SCH (09:09)
[2019-03-10] MEDS: lactobacillus rhamnosus 10,000 MMU CELLS/CAPSULE PO SCH ×2 (09:10→20:36)
[2019-03-10] MEDS: carVEDilol 12.5mg tablet OGT SCH ×2 (09:10→20:36)
[2019-03-10] MEDS: clopidogrel 75mg tablet OGT SCH (09:11)
[2019-03-10] MEDS: aspirin 81mg tab.chew OGT SCH (09:11)
[2019-03-10] MEDS: atorvastatin 20mg tablet OGT SCH (09:11)
[2019-03-10] MEDS: furosemide 40 MG/4 ML oral solution UD cup OGT SCH (09:13)
[2019-03-10] MEDS: enoxaparin 100mg/ml syringe SUBCUT SCH ×2 (09:53→20:37)
[2019-03-10] MEDS: propofol 1000mg/100ml bottle 100 ML IV SCH (13:16)
[2019-03-10] MEDS: normal saline 1000ml 1,000 ML IV SCH (14:58)
--- NOTE | 2019-03-10 18:30 | NUR ---
Patient in room CICU 2009. I have received report from Esther Yen RN, and had the opportunity to ask questions and assume patient care.
--- NOTE | 2019-03-10 19:30 | NUR ---
PT is intubated and mechanically vented, Tolerating setting well. O2 sat >97%. VSS. is at bedside holding PT hand and talking to PT. PT has A-Line to RT radial, transduced and zeroed. TF is running @ 25ml/hr d/t PT having increased residuals, will attempt to increase as PT tolerates. Lundberg in place and draining to gravity. Bed is locked and low. Will continue to monitor.
[2019-03-10] MEDS: insulin glargine (Lantus) pen - multi-dose SQ SCH (21:12)
--- NOTE | 2019-03-10 22:30 | NUR ---
HEALTH INSURANCE SPECIALIST Martin notified of PT continued increased residuals. Received a one time order for 10mg of Reglan.
[2019-03-10] MEDS: NORepinephrine 8mg/ 250ml NS 250 ML IV SCH (22:55)
--- NOTE | 2019-03-10 23:00 | NUR ---
PT resting with no s/s of distress noted at this time. VSS. PT is not following commands, eyes have been slightly open spontaneously but is upward gaze. PT has had intermitted cough. Bed is locked and low. Will continue to monitor.
[2019-03-11] VITALS (24 sets, daily range): BP systolic 105–222; BP diastolic 67–125
[2019-03-11] MEDS: methylPREDNISolone sod succ 125mg/2ml vial IV SCH ×4 (02:13→19:53)
[2019-03-11] MEDS: mineral oil/petrolatum ophthal oint EACHEYE SCH ×4 (02:13→19:55)
[2019-03-11] MEDS: insulin regular, human vial - multi-dose SQ SCH ×4 (02:24→20:07)
[2019-03-11 02:48] LABS: BASOPHILS % (AUTO) 0 % (0-1); EOSINOPHILS % (AUTO) 0 % (0-6); HEMATOCRIT 39.5 % (42.0-52.0); HEMOGLOBIN 13.1 g/dl (14.0-17.9); LYMPHOCYTES # (AUTO) 0.6 X10'3 (1.1-4.8); LYMPHOCYTES % (AUTO) 3.6 % (21-51); MEAN CORPUSCULAR HGB CONC 33.1 g/dL (33.0-36.5); MEAN CORPUSCULAR VOLUME 87.5 FL (78-98); MEAN PLATELET VOLUME 8.5 FL (7.4-10.4); MONOCYTES # (AUTO) 0.6 X10'3 (0-0.9); MONOCYTES % (AUTO) 3.9 % (2-12); NEUTROPHILS # (AUTO) 14.1 X10'3 (1.8-7.7); NEUTROPHILS % (AUTO) 92.5 % (42-75); PLATELET COUNT 187 X10'3 (140-440); RED BLOOD COUNT 4.52 X10'6 (4.70-6.10); RED CELL DISTRIBUTION WIDTH 14.4 % (11.5-14.5); WHITE BLOOD COUNT 15.3 X10'3 (4.5-11.0)
--- NOTE | 2019-03-11 03:00 | NUR ---
PT continues to rest with no s/s of distress noted at this time. VSS. Bed is locked and low. Will continue to monitor.
[2019-03-11 03:02] LABS: ALANINE AMINOTRANSFERASE 35 U/L (12-78); ALBUMIN 2.5 G/DL (3.4-5.0); ALBUMIN/GLOBULIN RATIO 0.8 (1.1-1.5); ALKALINE PHOSPHATASE 51 IU/L (46-116); ANION GAP 9 (8-16); ASPARTATE AMINO TRANSFERASE 53 U/L (10-37); BILIRUBIN,TOTAL 0.5 MG/DL (0.1-1.0); BLOOD UREA NITROGEN 43 MG/DL (7-18); BUN/CREATININE RATIO 32.1 (5.4-32.0); CALCIUM 8.2 MG/DL (8.5-10.1); CHLORIDE 109 MMOL/L (99-107); CREATININE 1.34 MG/DL (0.60-1.10); GLUCOSE 201 MG/DL (70-104); MAGNESIUM 2.2 MG/DL (1.5-2.4); PHOSPHORUS 2.4 MG/DL (2.3-4.5); SODIUM 143 MMOL/L (135-145); TOTAL CARBON DIOXIDE 24.7 MMOL/L (24-32); TOTAL PROTEIN 5.7 G/DL (6.4-8.2); eGFR 54 ML/MIN
[2019-03-11] MEDS: ipratropium/albuterol 3ml nebule NEB SCH ×6 (03:25→23:27)
--- NOTE | 2019-03-11 03:45 | NUR ---
PRN Fentanyl given after pt began coughing pt becoming hypertensive. PT is non responsive and unable to communicate needs. Will continue to monitor to see if Fentanyl has effect of BP.
[2019-03-11 04:00] LABS: ABG BASE EXCESS -0.4 mmol/L (-2.0-3.0); ABG OXYGEN SATURATION 95.7 % (95-98); ABG PCO2 (T) 34.3 mmHg (35.0-45.0); ABG PH (T) 7.445 (7.350-7.450); ABG PO2 (T) 75.4 mmHg (83-108); ALLEN'S TEST Positive; FCOHb 0.3 % (0.5-1.5); FMetHb 0.2 % (0.3-1.12); FO2Hb 95.2 % (94-100); MINUTE VOLUME 12 L/min; PATIENT TEMPERATURE 37.2; PEEP 8 cm H2O; RESPIRATORY RATE 16 b/min; RESPIRATORY RATE (OBSERVED) 20 b/min; TIDAL VOLUME 600 mL; TOTAL HEMOGLOBIN 14.1 G/dl (14.0-17.9)
[2019-03-11] MEDS: LORazepam 2 mg/ml vial IV PRN (04:20)
--- NOTE | 2019-03-11 04:27 | NUR ---
PRN Ativan given for seizure activity. PT Hypertensive and had myoclonic movement of bilat feel. Will continue to monitor
--- NOTE | 2019-03-11 05:15 | NUR ---
Art line to RT radial D/C'd d/t it continuously not working properly and would not draw. Pressure held until hemostasis achieved. Pressure drsg placed and is CDI. Will continue to monitor.
--- NOTE | 2019-03-11 06:39 | NUR ---
Problems reprioritized. Patient report given, questions answered & plan of care reviewed with Bethany LAKE.
[2019-03-11] MEDS: aspirin 81mg tab.chew OGT SCH (07:26)
[2019-03-11] MEDS: lactobacillus rhamnosus 10,000 MMU CELLS/CAPSULE PO SCH ×2 (07:26→19:53)
[2019-03-11] MEDS: ESOMEPRAZOLE 40 MG VIAL IV SCH (07:26)
[2019-03-11] MEDS: furosemide 40 MG/4 ML oral solution UD cup OGT SCH (07:27)
[2019-03-11] MEDS: busPIRone 5mg tablet OGT SCH ×2 (07:27→19:54)
[2019-03-11] MEDS: clopidogrel 75mg tablet OGT SCH (07:27)
[2019-03-11] MEDS: atorvastatin 20mg tablet OGT SCH (07:27)
[2019-03-11] MEDS: lisinopril 20mg tablet OGT SCH (07:27)
[2019-03-11] MEDS: carVEDilol 12.5mg tablet OGT SCH ×2 (07:27→19:54)
[2019-03-11] MEDS: enoxaparin 100mg/ml syringe SUBCUT SCH ×2 (07:28→19:53)
[2019-03-11] MEDS ORDERED: VANCOMYCIN LEVEL IV ONE (07:30)
[2019-03-11] MEDS: K, MAG and/or Phos replacement - Verify level? MC SCH (08:00)
--- NOTE | 2019-03-11 10:28 | NUR ---
Wound care POC. Spoke with primary nurse about skin integrity. Primary nurse states skin remains intact with pressure prevention interventions in place. States no areas of concern at this time. Will continue to monitor.
[2019-03-11] MEDS: propofol 1000mg/100ml bottle 100 ML IV SCH (13:26)
--- NOTE | 2019-03-11 13:32 | NUR ---
Reassessment: Patient receiving tube feeding below goal at 45 ml/hr, increasing slowly. GRV up to 293 ml, now down to 15 ml. No BM since admit. Receiving lactulose prn for BM. Will continue to follow. Rec: 1. Continuous tube feeding with Vital High Protein at 105ml/hr goal, start at 30 ml/hr and advance by 30 ml q 8 hours to goal rate; to provide 2520ml fluid, 2520kcals, 2117ml free water, and 221g protein. 2. Additional water flush 150ml Q4 3. Prealbumin Q /, daily wts 4. Continue bowel care Addendum: 03/11/19 at [address] Amended: Links added.
--- NOTE | 2019-03-11 18:09 | NUR ---
Problems reprioritized. Patient report given, questions answered & plan of care reviewed with JAYA Angulo.
--- NOTE | 2019-03-11 18:10 | NUR ---
Problems reprioritized. Patient report given, questions answered & plan of care reviewed with JAYA Angulo.
--- NOTE | 2019-03-11 18:18 | NUR ---
Patient in room CICU 2009. I have received report from Bethany LAKE, and had the opportunity to ask questions and assume patient care.
--- NOTE | 2019-03-11 19:30 | NUR ---
PT is intubated and mechanically vented, Tolerating setting well. O2 sat >97%. VSS. Visitors at bedside. TF is running @ 65ml/hr, will attempt to increase as PT tolerates. Lundberg in place and draining to gravity. Bed is locked and low. Will continue to monitor.
[2019-03-11] MEDS: VANCOmycin 1250MG/NS 250ml Bag 250 ML IV SCH (19:54)
--- NOTE | 2019-03-11 20:00 | NUR ---
Dr. Mcmanus at bedside assessing PT.
[2019-03-11] MEDS ORDERED: labetalol 20mg/4ml (5mg/ml) syringe IV PRN ×2 (20:40→21:20)
[2019-03-11] MEDS: insulin glargine (Lantus) pen - multi-dose SQ SCH (21:03)
[2019-03-11] MEDS ORDERED: labetalol 20mg/4ml (5mg/ml) syringe IV ONE (21:20)
[2019-03-11] MEDS: acetaminophen 325mg/10.15ml oral unit dose solution OGT PRN (21:21)
[2019-03-11] MEDS: niCARDipine-NS 40mg/200ml IVPB 200 ML IV PRN (21:41)
--- NOTE | 2019-03-11 21:45 | NUR ---
After neurology consult, PT hypertensive with SPB reaching as high as 230's and sustained. IMMIGRATION MANAGER Martin notified, order received to give 10mg IVP Labetalol. Given with no effect, received order for additional 10mg IVP. Still with no effect. Order received to start Cardene gtt. Will continue to monitor.
--- NOTE | 2019-03-11 23:00 | NUR ---
PT BP has improved, Cardene gtt continues. Will continue to monitor.
[2019-03-12] VITALS (24 sets, daily range): BP systolic 111–184; BP diastolic 58–108
--- NOTE | 2019-03-12 01:00 | NUR ---
PT BP has normalized, Cardene gtt turned off at this time. Will continue to monitor.
[2019-03-12] MEDS: methylPREDNISolone sod succ 125mg/2ml vial IV SCH ×4 (02:21→20:08)
[2019-03-12] MEDS: mineral oil/petrolatum ophthal oint EACHEYE SCH ×4 (02:21→20:09)
[2019-03-12] MEDS: insulin regular, human vial - multi-dose SQ SCH ×4 (02:34→20:16)
[2019-03-12] MEDS: ipratropium/albuterol 3ml nebule NEB SCH ×6 (03:18→22:36)
[2019-03-12 03:22] LABS: BASOPHILS % (AUTO) 0.1 % (0-1); EOSINOPHILS % (AUTO) 0 % (0-6); HEMATOCRIT 39.2 % (42.0-52.0); HEMOGLOBIN 13.3 g/dl (14.0-17.9); LYMPHOCYTES # (AUTO) 0.7 X10'3 (1.1-4.8); LYMPHOCYTES % (AUTO) 7.4 % (21-51); MEAN CORPUSCULAR HEMOGLOBIN 29.2 PG (27.0-31.0); MEAN CORPUSCULAR HGB CONC 33.9 g/dL (33.0-36.5); MEAN CORPUSCULAR VOLUME 86.2 FL (78-98); MEAN PLATELET VOLUME 8.6 FL (7.4-10.4); MONOCYTES # (AUTO) 0.8 X10'3 (0-0.9); MONOCYTES % (AUTO) 7.6 % (2-12); NEUTROPHILS # (AUTO) 8.4 X10'3 (1.8-7.7); NEUTROPHILS % (AUTO) 84.9 % (42-75); PLATELET COUNT 176 X10'3 (140-440); RED BLOOD COUNT 4.55 X10'6 (4.70-6.10); RED CELL DISTRIBUTION WIDTH 14.4 % (11.5-14.5); WHITE BLOOD COUNT 9.9 X10'3 (4.5-11.0)
--- NOTE | 2019-03-12 03:30 | NUR ---
PT resting with no s/s of distress noted at this time. VSS. Bed is locked and low. Will continue to monitor.
[2019-03-12 03:31] LABS: ABG OXYGEN SATURATION 95.5 % (95-98); ABG PCO2 (T) 33.3 mmHg (35.0-45.0); ABG PH (T) 7.492 (7.350-7.450); ABG PO2 (T) 71.8 mmHg (83-108); ALLEN'S TEST Positive; FCOHb 0.3 % (0.5-1.5); FMetHb 0.5 % (0.3-1.12); FO2Hb 94.7 % (94-100); MINUTE VOLUME 10 L/min; PATIENT TEMPERATURE 36.5; PEEP 8 cm H2O; RESPIRATORY RATE 16 b/min; RESPIRATORY RATE (OBSERVED) 16 b/min; TIDAL VOLUME 600 mL; TOTAL HEMOGLOBIN 14.1 G/dl (14.0-17.9)
[2019-03-12 03:43] LABS: ALANINE AMINOTRANSFERASE 40 U/L (12-78); ALBUMIN 2.4 G/DL (3.4-5.0); ALBUMIN/GLOBULIN RATIO 0.8 (1.1-1.5); ALKALINE PHOSPHATASE 47 IU/L (46-116); ANION GAP 8 (8-16); ASPARTATE AMINO TRANSFERASE 53 U/L (10-37); BILIRUBIN,TOTAL 0.5 MG/DL (0.1-1.0); BLOOD UREA NITROGEN 49 MG/DL (7-18); BUN/CREATININE RATIO 40.8 (5.4-32.0); CHLORIDE 110 MMOL/L (99-107); GLUCOSE 219 MG/DL (70-104); MAGNESIUM 1.9 MG/DL (1.5-2.4); PHOSPHORUS 2.3 MG/DL (2.3-4.5); POTASSIUM 3.7 MMOL/L (3.5-5.1); PREALBUMIN 26.4 MG/DL (19-36); SODIUM 143 MMOL/L (135-145); TOTAL CARBON DIOXIDE 24.8 MMOL/L (24-32); TOTAL PROTEIN 5.4 G/DL (6.4-8.2); eGFR 61 ML/MIN
[2019-03-12] MEDS ORDERED: magnesium 2GM in 50ml NS 50 ML IV ONE (05:00)
--- NOTE | 2019-03-12 06:24 | NUR ---
Problems reprioritized. Patient report given, questions answered & plan of care reviewed with Bethany LAKE.
--- NOTE | 2019-03-12 06:55 | NUR ---
Patient in room CICU 2009. I have received report from JAYA Angulo and had the opportunity to ask questions and assume patient care.
[2019-03-12] MEDS: methylnaltrexone br 12mg/0.6ml inj***SubQ only SQ SCH (08:00)
[2019-03-12] MEDS: lactobacillus rhamnosus 10,000 MMU CELLS/CAPSULE PO SCH ×2 (08:00→20:09)
[2019-03-12] MEDS: aspirin 81mg tab.chew OGT SCH (08:00)
[2019-03-12] MEDS: VANCOmycin 1250MG/NS 250ml Bag 250 ML IV SCH ×2 (08:00→21:47)
[2019-03-12] MEDS: enoxaparin 100mg/ml syringe SUBCUT SCH ×2 (08:00→20:09)
[2019-03-12] MEDS: K, MAG and/or Phos replacement - Verify level? MC SCH (08:00)
[2019-03-12] MEDS: ESOMEPRAZOLE 40 MG VIAL IV SCH (08:00)
[2019-03-12] MEDS: lisinopril 20mg tablet OGT SCH (08:01)
[2019-03-12] MEDS: carVEDilol 12.5mg tablet OGT SCH ×2 (08:01→20:09)
[2019-03-12] MEDS: atorvastatin 20mg tablet OGT SCH (08:01)
[2019-03-12] MEDS: busPIRone 5mg tablet OGT SCH ×2 (08:01→20:09)
[2019-03-12] MEDS: clopidogrel 75mg tablet OGT SCH (08:01)
[2019-03-12] MEDS: furosemide 40 MG/4 ML oral solution UD cup OGT SCH (08:01)
[2019-03-12] MEDS: LORazepam 2 mg/ml vial IV PRN ×2 (08:26→19:35)
[2019-03-12] MEDS ORDERED: levetiracetam inj 1,000 MG in normal saline 100ml IV soln 90 ML IV ONE (08:40)
[2019-03-12] MEDS ORDERED: levetiracetam inj 500 MG in normal saline 100ml IV soln 95 ML IV ONE (11:45)
[2019-03-12] MEDS ORDERED: iohexol 300mg/ml 100ml inj. ONE (12:11)
[2019-03-12 12:42] LABS: CREATINE KINASE 93 U/L (39-308)
[2019-03-12] MEDS: propofol 1000mg/100ml bottle 100 ML IV SCH (13:36)
[2019-03-12] MEDS: niCARDipine-NS 40mg/200ml IVPB 200 ML IV PRN (14:05)
--- NOTE | 2019-03-12 15:15 | NUR ---
0800: Pt's left leg began twitching continuously. RR steadily increased to mid 30s. Within minutes, HR increased from 80s to 120s, BP 180s/120s and whole body began shaking. Pt's eyes opened and rolled into back of head. Report from film processing shift supervisor RN that pt had a couple episodes of seizure like activity with increase in BP, HR, and RR but was resolved without medication (aside from cardene to control HTN). Waited a few mins to see if seizure like activity would stop but pt continued to shake all over. Gave pt 2mg ativan according to [facility] order put in by Dr. Gifford on 03/11. No effect after 5 mins, another 2mg given. Pt continued to be tachypnic, tachycardic, and hypertensive and shake with eyes rolled back into his head and completely rigid BLE. Called Dr. Gifford and got order for 1000mg keppra. Pt's seizure continued throughout keppra administration and temperature steadily dee to max of 38.0 but began to subside roughly 15-20 mins after keppra had finished. Respiratory rate lowered into mid 20s, HR down to low 100s, shaking became more and more minimal. Pt continue to have localized twitching in LLE. Balta consulted Dr. Mcmanus and got order for another 500mg keppra and order for depakote if LLE twitching did not subside after extra dose of keppra. Twitching stopped after total of 1500mg keppra administered. New order for 1500mg keppra BID. Temperature has steadily decreased throughout last several hours. Current VS: BP 121/59, HR 77, O2 99%, RR 16, temp 37.5
[2019-03-12] MEDS: normal saline 1000ml 1,000 ML IV SCH (16:58)
--- NOTE | 2019-03-12 17:48 | NUR ---
1730: Pt's HR increased to 90s/low 100s, has been in 70s since 1200. Bp maintained SBP 120s-130s throughout last 5 hours, currently 150s-160s. L foot began twitching again. RR stable at 17. Keppra has been effective for 5 hours. Awaiting call back from Dr. Gifford to clarify whether or not he would like to start depakote since next keppra dose not due until 1999. Previous verbal order from Dr. Gifford was to start depakote if last dose of keppra not effective within 1 hour.
--- NOTE | 2019-03-12 18:04 | NUR ---
HR increasing. Now 106-108. Temp has gone from 37.5 to 37.7 within last 30 min. RR 18. BP 161/87. L foot continues to shake. Still awaiting call back from Dr. perez.
--- NOTE | 2019-03-12 18:09 | NUR ---
R foot has begun to twitch
--- NOTE | 2019-03-12 18:25 | NUR ---
Problems reprioritized. Patient report given, questions answered & plan of care reviewed with JAYA Angulo.
--- NOTE | 2019-03-12 18:27 | NUR ---
Patient in room CICU 2009. I have received report from Bethany LAKE, and had the opportunity to ask questions and assume patient care.
--- NOTE | 2019-03-12 18:37 | NUR ---
Called and spoke to Pharmacist Gloria to clarify Keppra dose. PT received 1000mg around 0900 and an additional 500mg at 1200. Time was changed to 1814 from the original 1999 for 1500mg dose. Pharmacy called to make sure it was indeed ok to administer the full 1500mg dose now. Pharmacist stated it was appropriate to administer med d/t rule of halves and because PT is having active seizure activity at this time. It has been 6 hrs since 500mg dose. computer laboratory technician is at bedside connecting PT to EEG machine. Will continue to monitor.
[2019-03-12] MEDS: levetiracetam inj 1,000 MG in normal saline 100ml IV soln 90 ML IV SCH (18:41)
[2019-03-12] MEDS: LevETIRAcetam 500 MG in NORMAL SALINE 100ml IV.SOLN IV SCH (18:58)
--- NOTE | 2019-03-12 19:00 | NUR ---
painting technician is at bedside. PT appears to be having seizure activity. Bilat lower extremities are flexed and having myoclonic movements, upper extremities appear to be tense and extended slightly extended not negative for any myoclonic moments. Eyes are rolled back in head, gazed up at ceiling, eyelids blinking rapidly. HR is in 120's, RR is in 20's, SBP is over 200. Temperature increasing, in approx 30 mins PT went from 37.7 to 38.6. Keppra is infusing. is at beside. Will continue to monitor.
[2019-03-12] MEDS: acetaminophen 325mg/10.15ml oral unit dose solution OGT PRN (19:25)
[2019-03-12] MEDS ORDERED: valproate sod inj 500 MG in normal saline 100ml IV soln 95 ML IV ONE (19:40)
[2019-03-12] MEDS ORDERED: rocuronium 10mg/ml inj IV ONE (19:45)
--- NOTE | 2019-03-12 19:55 | NUR ---
LORRIE Dai notified around 1924 d/t PT RR reaching high 40's, SBP continues to be in 200's with Cardene gtt running and titrated up. Ventilator kept alarming with multiple alarms, RT notified, Charge nurse bagged PT for a short period of time. LORRIE Dai came to bedside to assess PT, 100mg Rocuronium ordered for vent compliance and 4mg PRN Ativan given d/t post Keppra administration and myoclonic movement present. Dr. Mcmanus was paged and called back, he Ordered 500mg Depakote to be given IVPB. And to call him if the EEG report showed any seizure activity. Will continue to monitor.
[2019-03-12] MEDS ORDERED: levetiracetam inj 1,000 MG in normal saline 100ml IV soln 90 ML IV SCH ×4 (20:00)
[2019-03-12] MEDS ORDERED: LevETIRAcetam 500 MG in NORMAL SALINE 100ml IV.SOLN IV SCH (20:00)
[2019-03-12] MEDS: insulin glargine (Lantus) pen - multi-dose SQ SCH (20:17)
--- NOTE | 2019-03-12 20:20 | NUR ---
Dr Gifford called and was given and update on PT. Order received to Hang bottle of Propofol but do not run it continuously and bolus PT if he has further episodes. Will continue to monitor.
--- NOTE | 2019-03-12 23:00 | NUR ---
PT resting with no s/s of distress noted at this time. VSS. Bed is locked and low. Bilat soft wrist restraints remain in place and secure. Will continue to monitor.
[2019-03-13] VITALS (24 sets, daily range): BP systolic 116–186; BP diastolic 60–99
[2019-03-13] MEDS: mineral oil/petrolatum ophthal oint EACHEYE SCH ×4 (02:16→20:03)
[2019-03-13] MEDS: methylPREDNISolone sod succ 125mg/2ml vial IV SCH ×4 (02:16→20:02)
[2019-03-13] MEDS: insulin regular, human vial - multi-dose SQ SCH ×4 (02:44→20:09)
[2019-03-13] MEDS: ipratropium/albuterol 3ml nebule NEB SCH ×6 (02:51→23:11)
[2019-03-13 03:00] LABS: BASOPHILS % (AUTO) 0.2 % (0-1); EOSINOPHILS % (AUTO) 0 % (0-6); HEMATOCRIT 38.3 % (42.0-52.0); LYMPHOCYTES # (AUTO) 0.6 X10'3 (1.1-4.8); LYMPHOCYTES % (AUTO) 10.5 % (21-51); MEAN CORPUSCULAR HEMOGLOBIN 29.6 PG (27.0-31.0); MEAN CORPUSCULAR HGB CONC 33.9 g/dL (33.0-36.5); MEAN CORPUSCULAR VOLUME 87.3 FL (78-98); MEAN PLATELET VOLUME 8.5 FL (7.4-10.4); MONOCYTES # (AUTO) 0.8 X10'3 (0-0.9); MONOCYTES % (AUTO) 13.5 % (2-12); NEUTROPHILS # (AUTO) 4.4 X10'3 (1.8-7.7); NEUTROPHILS % (AUTO) 75.8 % (42-75); PLATELET COUNT 164 X10'3 (140-440); RED BLOOD COUNT 4.38 X10'6 (4.70-6.10); RED CELL DISTRIBUTION WIDTH 14.3 % (11.5-14.5); WHITE BLOOD COUNT 5.8 X10'3 (4.5-11.0)
--- NOTE | 2019-03-13 03:00 | NUR ---
PT continues to rest with no s/s of distress noted at this time, no further seizure activity thus far. VSS. Bed is locked and low. Bilat soft wrist restraints remain in place and secure. Will continue to monitor.
[2019-03-13 03:13] LABS: ALANINE AMINOTRANSFERASE 46 U/L (12-78); ALBUMIN 2.1 G/DL (3.4-5.0); ALBUMIN/GLOBULIN RATIO 0.7 (1.1-1.5); ALKALINE PHOSPHATASE 40 IU/L (46-116); ANION GAP 6 (8-16); ASPARTATE AMINO TRANSFERASE 46 U/L (10-37); BILIRUBIN,TOTAL 0.4 MG/DL (0.1-1.0); BLOOD UREA NITROGEN 63 MG/DL (7-18); BUN/CREATININE RATIO 45.7 (5.4-32.0); CALCIUM 7.5 MG/DL (8.5-10.1); CHLORIDE 111 MMOL/L (99-107); CREATININE 1.38 MG/DL (0.60-1.10); GLUCOSE 251 MG/DL (70-104); POTASSIUM 3.6 MMOL/L (3.5-5.1); SODIUM 143 MMOL/L (135-145); TOTAL CARBON DIOXIDE 25.8 MMOL/L (24-32); TOTAL PROTEIN 5.1 G/DL (6.4-8.2); eGFR 52 ML/MIN
[2019-03-13 04:20] LABS: ABG BASE EXCESS -0.3 mmol/L (-2.0-3.0); ABG HCO3 22.9 mmol/L (22.0-26.0); ABG OXYGEN SATURATION 98.1 % (95-98); ABG PH (T) 7.459 (7.350-7.450); ABG PO2 (T) 107.1 mmHg (83-108); ALLEN'S TEST Positive; FCOHb 0.1 % (0.5-1.5); FMetHb 0.2 % (0.3-1.12); FO2Hb 97.8 % (94-100); MINUTE VOLUME 10 L/min; PATIENT TEMPERATURE 36.8; PEEP 8 cm H2O; RESPIRATORY RATE 16 b/min; RESPIRATORY RATE (OBSERVED) 16 b/min; TIDAL VOLUME 600 mL; TOTAL HEMOGLOBIN 13.9 G/dl (14.0-17.9)
--- NOTE | 2019-03-13 06:34 | NUR ---
Problems reprioritized. Patient report given, questions answered & plan of care reviewed with Eliezer LAKE.
[2019-03-13] MEDS: LORazepam 2 mg/ml vial IV PRN ×2 (07:15→18:36)
--- NOTE | 2019-03-13 07:15 | NUR ---
Ativan given at 0715 for seizure like activity, per MD orders. Didnt scan. Verified with Hayley LAKE at bedside
--- NOTE | 2019-03-13 07:15 | NUR ---
4mg Ativan given for seizure like activity, per Md orders. Med not scanned. Verified with Hayley LAKE at bedside.
[2019-03-13] MEDS ORDERED: VANCOMYCIN LEVEL IV ONE (07:30)
[2019-03-13] MEDS: LevETIRAcetam 500 MG in NORMAL SALINE 100ml IV.SOLN IV SCH (07:32)
[2019-03-13] MEDS: levetiracetam inj 1,000 MG in normal saline 100ml IV soln 90 ML IV SCH (07:32)
[2019-03-13] MEDS: busPIRone 5mg tablet OGT SCH ×2 (07:33→20:02)
[2019-03-13] MEDS: clopidogrel 75mg tablet OGT SCH (07:33)
[2019-03-13] MEDS: lactobacillus rhamnosus 10,000 MMU CELLS/CAPSULE PO SCH ×2 (07:33→20:02)
[2019-03-13] MEDS: carVEDilol 12.5mg tablet OGT SCH ×2 (07:33→20:02)
[2019-03-13] MEDS: atorvastatin 20mg tablet OGT SCH (07:33)
[2019-03-13] MEDS: ESOMEPRAZOLE 40 MG VIAL IV SCH (07:33)
[2019-03-13] MEDS: furosemide 40 MG/4 ML oral solution UD cup OGT SCH (07:34)
[2019-03-13] MEDS: lisinopril 20mg tablet OGT SCH (07:34)
[2019-03-13] MEDS: enoxaparin 100mg/ml syringe SUBCUT SCH ×2 (07:35→20:02)
[2019-03-13] MEDS: aspirin 81mg tab.chew OGT SCH (07:35)
[2019-03-13] MEDS: K, MAG and/or Phos replacement - Verify level? MC SCH (08:00)
[2019-03-13] MEDS: VANCOmycin 1250MG/NS 250ml Bag 250 ML IV SCH (09:51)
--- NOTE | 2019-03-13 11:23 | NUR ---
PEEP reduced to [address] Zuniga's orders.
[2019-03-13] MEDS: propofol 1000mg/100ml bottle 100 ML IV SCH (13:46)
[2019-03-13] MEDS: LORazepam 2 mg/ml vial IV SCH ×2 (13:57→20:03)
[2019-03-13] MEDS ORDERED: etomidate 2mg/ml inj. ONE (18:00)
--- NOTE | 2019-03-13 18:15 | NUR ---
Patient in room CICU 2009. I have received report from Eliezer LAKE and had the opportunity to ask questions and assume patient care.
--- NOTE | 2019-03-13 18:18 | NUR ---
Problems reprioritized. Patient report given, questions answered & plan of care reviewed with Jacqueline LAKE.
--- NOTE | 2019-03-13 18:35 | NUR ---
4mg of ativan given for seizure like activity. Patients left foot shaking, BP and pulse elevated at this time. Eyes open with a upward left gaze. Will continue to monitor.
[2019-03-13] MEDS: insulin glargine (Lantus) pen - multi-dose SQ SCH (20:11)
[2019-03-13 21:05] LABS: ABG BASE EXCESS 1.5 mmol/L (-2.0-3.0); ABG HCO3 24.8 mmol/L (22.0-26.0); ABG OXYGEN SATURATION 92.1 % (95-98); ABG PCO2 (T) 35.5 mmHg (35.0-45.0); ABG PH (T) 7.463 (7.350-7.450); ABG PO2 (T) 61.2 mmHg (83-108); ALLEN'S TEST Positive; FCOHb 0.5 % (0.5-1.5); FMetHb 0.3 % (0.3-1.12); FO2Hb 91.4 % (94-100); MINUTE VOLUME 10 L/min; PATIENT TEMPERATURE 37.2; PEEP 5 cm H2O; RESPIRATORY RATE 16 b/min; RESPIRATORY RATE (OBSERVED) 16 b/min; TIDAL VOLUME 600 mL; TOTAL HEMOGLOBIN 14.3 G/dl (14.0-17.9)
--- NOTE | 2019-03-13 22:00 | NUR ---
Patient re-intubated by Dr Pineda from ED. Patient had cuff leak, RT attempted to advance tube further without success. Will continue to monitor patient.
[2019-03-13] MEDS ORDERED: midazolam 2 mg/2 ml injection ONE (22:03)
[2019-03-14] VITALS (24 sets, daily range): BP systolic 131–158; BP diastolic 63–78
[2019-03-14] MEDS: mineral oil/petrolatum ophthal oint EACHEYE SCH ×4 (02:51→21:16)
[2019-03-14] MEDS: methylPREDNISolone sod succ 125mg/2ml vial IV SCH ×4 (02:51→21:08)
[2019-03-14] MEDS: LORazepam 2 mg/ml vial IV SCH ×4 (02:51→21:00)
[2019-03-14] MEDS: insulin regular, human vial - multi-dose SQ SCH ×4 (02:53→21:22)
[2019-03-14 03:31] LABS: BASOPHILS % (AUTO) 0 % (0-1); EOSINOPHILS % (AUTO) 0 % (0-6); HEMATOCRIT 39.9 % (42.0-52.0); HEMOGLOBIN 13.2 g/dl (14.0-17.9); LYMPHOCYTES # (AUTO) 0.4 X10'3 (1.1-4.8); LYMPHOCYTES % (AUTO) 4.8 % (21-51); MEAN CORPUSCULAR HGB CONC 33.1 g/dL (33.0-36.5); MEAN CORPUSCULAR VOLUME 87.8 FL (78-98); MEAN PLATELET VOLUME 8.7 FL (7.4-10.4); MONOCYTES # (AUTO) 1.3 X10'3 (0-0.9); MONOCYTES % (AUTO) 15.6 % (2-12); NEUTROPHILS # (AUTO) 6.6 X10'3 (1.8-7.7); NEUTROPHILS % (AUTO) 79.6 % (42-75); PLATELET COUNT 181 X10'3 (140-440); RED BLOOD COUNT 4.54 X10'6 (4.70-6.10); RED CELL DISTRIBUTION WIDTH 14.2 % (11.5-14.5); WHITE BLOOD COUNT 8.3 X10'3 (4.5-11.0)
[2019-03-14] MEDS: ipratropium/albuterol 3ml nebule NEB SCH ×6 (03:49→22:25)
[2019-03-14 03:50] LABS: ALANINE AMINOTRANSFERASE 38 U/L (12-78); ALBUMIN 2.1 G/DL (3.4-5.0); ALBUMIN/GLOBULIN RATIO 0.7 (1.1-1.5); ALKALINE PHOSPHATASE 39 IU/L (46-116); ANION GAP 7 (8-16); ASPARTATE AMINO TRANSFERASE 43 U/L (10-37); BILIRUBIN,TOTAL 0.5 MG/DL (0.1-1.0); BLOOD UREA NITROGEN 66 MG/DL (7-18); BUN/CREATININE RATIO 53.7 (5.4-32.0); CALCIUM 7.7 MG/DL (8.5-10.1); CHLORIDE 113 MMOL/L (99-107); CREATININE 1.23 MG/DL (0.60-1.10); GLUCOSE 209 MG/DL (70-104); PHOSPHORUS 3.1 MG/DL (2.3-4.5); POTASSIUM 3.8 MMOL/L (3.5-5.1); SODIUM 147 MMOL/L (135-145); TOTAL CARBON DIOXIDE 27.4 MMOL/L (24-32); eGFR 59 ML/MIN
[2019-03-14 04:05] LABS: ABG BASE EXCESS 1.7 mmol/L (-2.0-3.0); ABG HCO3 24.5 mmol/L (22.0-26.0); ABG PCO2 (T) 34.1 mmHg (35.0-45.0); ABG PH (T) 7.477 (7.350-7.450); ABG PO2 (T) 74.9 mmHg (83-108); ALLEN'S TEST Positive; FCOHb 0.3 % (0.5-1.5); FMetHb 0.1 % (0.3-1.12); FO2Hb 94.6 % (94-100); MINUTE VOLUME 10 L/min; PATIENT TEMPERATURE 37.6; PEEP 5 cm H2O; RESPIRATORY RATE 16 b/min; RESPIRATORY RATE (OBSERVED) 16 b/min; TIDAL VOLUME 600 mL; TOTAL HEMOGLOBIN 13.8 G/dl (14.0-17.9)
--- NOTE | 2019-03-14 06:21 | NUR ---
Problems reprioritized. Patient report given, questions answered & plan of care reviewed with Eliezer LAKE.
[2019-03-14] MEDS: K, MAG and/or Phos replacement - Verify level? MC SCH (08:00)
[2019-03-14] MEDS: lactobacillus rhamnosus 10,000 MMU CELLS/CAPSULE PO SCH ×2 (08:01→21:17)
[2019-03-14] MEDS: busPIRone 5mg tablet OGT SCH ×2 (08:01→21:17)
[2019-03-14] MEDS: ESOMEPRAZOLE 40 MG VIAL IV SCH (08:01)
[2019-03-14] MEDS: enoxaparin 100mg/ml syringe SUBCUT SCH ×2 (08:01→21:04)
[2019-03-14] MEDS: lisinopril 20mg tablet OGT SCH (08:02)
[2019-03-14] MEDS: atorvastatin 20mg tablet OGT SCH (08:02)
[2019-03-14] MEDS: clopidogrel 75mg tablet OGT SCH (08:02)
[2019-03-14] MEDS: carVEDilol 12.5mg tablet OGT SCH ×2 (08:02→21:17)
[2019-03-14] MEDS: aspirin 81mg tab.chew OGT SCH (08:02)
[2019-03-14] MEDS: furosemide 40 MG/4 ML oral solution UD cup OGT SCH (08:05)
--- NOTE | 2019-03-14 10:09 | NUR ---
Reassessment: Pt continues tolerating TF now at goal of 105 mL/hr with low GRV 0-25 mL. Documented wt +10 kg likely false as this change happened within the same day. Still no documented BM, receiving Lactulose PRN. Will continue to follow. Rec: 1. Continuous tube feeding with Vital High Protein at 105ml/hr goal, start at 30 ml/hr and advance by 30 ml q 8 hours to goal rate; to provide 2520ml fluid, 2520kcals, 2117ml free water, and 221g protein. 2. Additional water flush 150ml Q4 3. Prealbumin Q /, daily wts 4. Continue bowel care; pt likely would benefit from routine bowel care Addendum: 03/14/19 at [address] Amended: Links added.
[2019-03-14] MEDS: propofol 1000mg/100ml bottle 100 ML IV SCH (13:56)
[2019-03-14] MEDS ORDERED: furosemide 10 MG/1 ML 10ml inj IV ONE (16:45)
[2019-03-14] MEDS: normal saline 1000ml 1,000 ML IV SCH (16:55)
[2019-03-14] MEDS ORDERED: insulin glargine (Lantus) pen - multi-dose SQ ONE (17:00)
--- NOTE | 2019-03-14 18:30 | NUR ---
Patient in room CICU 2009. I have received report from JAYA Martins and had the opportunity to ask questions and assume patient care.
[2019-03-14] MEDS: insulin glargine (Lantus) pen - multi-dose SQ SCH (21:24)
[2019-03-14] MEDS: acetaminophen 325mg/10.15ml oral unit dose solution OGT PRN (21:26)
[2019-03-15] VITALS (25 sets, daily range): BP systolic 108–176; BP diastolic 57–89
[2019-03-15] MEDS: LORazepam 2 mg/ml vial IV SCH ×4 (02:15→20:51)
[2019-03-15] MEDS: mineral oil/petrolatum ophthal oint EACHEYE SCH ×4 (02:16→20:52)
[2019-03-15] MEDS: methylPREDNISolone sod succ 125mg/2ml vial IV SCH ×4 (02:16→20:51)
[2019-03-15] MEDS: ipratropium/albuterol 3ml nebule NEB SCH ×6 (02:26→22:32)
[2019-03-15] MEDS: insulin regular, human vial - multi-dose SQ SCH ×4 (02:27→20:55)
[2019-03-15 03:03] LABS: BASOPHILS % (AUTO) 0.1 % (0-1); EOSINOPHILS % (AUTO) 0 % (0-6); HEMATOCRIT 39.1 % (42.0-52.0); HEMOGLOBIN 13.1 g/dl (14.0-17.9); LYMPHOCYTES # (AUTO) 0.3 X10'3 (1.1-4.8); LYMPHOCYTES % (AUTO) 5.9 % (21-51); MEAN CORPUSCULAR HEMOGLOBIN 29.1 PG (27.0-31.0); MEAN CORPUSCULAR HGB CONC 33.5 g/dL (33.0-36.5); MEAN CORPUSCULAR VOLUME 86.8 FL (78-98); MEAN PLATELET VOLUME 8.7 FL (7.4-10.4); MONOCYTES % (AUTO) 21.7 % (2-12); NEUTROPHILS # (AUTO) 3.3 X10'3 (1.8-7.7); NEUTROPHILS % (AUTO) 72.3 % (42-75); PLATELET COUNT 164 X10'3 (140-440); RED BLOOD COUNT 4.51 X10'6 (4.70-6.10); RED CELL DISTRIBUTION WIDTH 14.4 % (11.5-14.5); WHITE BLOOD COUNT 4.5 X10'3 (4.5-11.0)
[2019-03-15 03:25] LABS: ALANINE AMINOTRANSFERASE 47 U/L (12-78); ALBUMIN 1.9 G/DL (3.4-5.0); ALBUMIN/GLOBULIN RATIO 0.7 (1.1-1.5); ALKALINE PHOSPHATASE 33 IU/L (46-116); ANION GAP 8 (8-16); ASPARTATE AMINO TRANSFERASE 49 U/L (10-37); BILIRUBIN,TOTAL 0.5 MG/DL (0.1-1.0); BLOOD UREA NITROGEN 66 MG/DL (7-18); BUN/CREATININE RATIO 49.3 (5.4-32.0); CALCIUM 7.6 MG/DL (8.5-10.1); CHLORIDE 113 MMOL/L (99-107); CREATININE 1.34 MG/DL (0.60-1.10); GLUCOSE 201 MG/DL (70-104); MAGNESIUM 1.9 MG/DL (1.5-2.4); POTASSIUM 3.7 MMOL/L (3.5-5.1); SODIUM 149 MMOL/L (135-145); TOTAL CARBON DIOXIDE 27.6 MMOL/L (24-32); TOTAL PROTEIN 4.8 G/DL (6.4-8.2); TRIGLYCERIDES 71 MG/DL (20-135); eGFR 54 ML/MIN
[2019-03-15 03:59] LABS: ANISOCYTOSIS 1+; PLATELET ESTIMATE NORMAL; TOTAL CELLS COUNTED 100
[2019-03-15 04:00] LABS: ELLIPTOCYTES FEW; POLYCHROMASIA FEW
[2019-03-15 04:25] LABS: ABG BASE EXCESS -0.7 mmol/L (-2.0-3.0); ABG HCO3 22.4 mmol/L (22.0-26.0); ABG OXYGEN SATURATION 95.5 % (95-98); ABG PCO2 (T) 33.8 mmHg (35.0-45.0); ABG PH (T) 7.442 (7.350-7.450); ABG PO2 (T) 80.6 mmHg (83-108); ALLEN'S TEST Positive; FCOHb 0.3 % (0.5-1.5); FMetHb 0.2 % (0.3-1.12); MINUTE VOLUME 13 L/min; PEEP 5 cm H2O; RESPIRATORY RATE 16 b/min; RESPIRATORY RATE (OBSERVED) 19 b/min; TIDAL VOLUME 600 mL
--- NOTE | 2019-03-15 06:02 | NUR ---
Tube feed stopped at 0400 due to a 625 residual. Rechecked this hour and it is 375. will continue to hold at this time per protocol. Addendum: 03/15/19 at 0604 by Nyla Olvera RN wrong patient
--- NOTE | 2019-03-15 06:27 | NUR ---
Problems reprioritized. Patient report given, questions answered & plan of care reviewed with JAYA Summers.
[2019-03-15] MEDS: furosemide 40 MG/4 ML oral solution UD cup OGT SCH (07:48)
[2019-03-15] MEDS: enoxaparin 100mg/ml syringe SUBCUT SCH ×2 (07:48→20:51)
[2019-03-15] MEDS: carVEDilol 12.5mg tablet OGT SCH ×2 (07:49→20:51)
[2019-03-15] MEDS: clopidogrel 75mg tablet OGT SCH (07:49)
[2019-03-15] MEDS: aspirin 81mg tab.chew OGT SCH (07:49)
[2019-03-15] MEDS: lisinopril 20mg tablet OGT SCH (07:49)
[2019-03-15] MEDS: lactobacillus rhamnosus 10,000 MMU CELLS/CAPSULE PO SCH ×2 (07:50→20:51)
[2019-03-15] MEDS: busPIRone 5mg tablet OGT SCH ×2 (07:50→20:51)
[2019-03-15] MEDS: atorvastatin 20mg tablet OGT SCH (07:50)
[2019-03-15] MEDS: K, MAG and/or Phos replacement - Verify level? MC SCH (08:00)
[2019-03-15] MEDS: ESOMEPRAZOLE 40 MG VIAL IV SCH (08:01)
[2019-03-15] MEDS ORDERED: diltiazem 5mg/ml 5ml inj. IV ONE (16:45)
--- NOTE | 2019-03-15 16:50 | NUR ---
Pt went into Afib with RVR notified orders given. Pt BP stable HR in 170s Will cont to closely monitor
--- NOTE | 2019-03-15 17:10 | NUR ---
Cardizem push and gtt started. Pt HR in 90-100 cont in Afib
[2019-03-15] MEDS: insulin glargine (Lantus) pen - multi-dose SQ SCH (20:54)
[2019-03-15] MEDS: diltiazem-NS 100mg/100ml 100 ML IV SCH (22:35)
[2019-03-15] MEDS: acetaminophen 325mg/10.15ml oral unit dose solution OGT PRN (22:41)
--- NOTE | 2019-03-15 23:19 | NUR ---
Tylenol given for temp 38.5
[2019-03-16] VITALS (26 sets, daily range): BP systolic 92–146; BP diastolic 45–88
[2019-03-16] MEDS: LORazepam 2 mg/ml vial IV SCH ×4 (02:20→20:11)
[2019-03-16] MEDS: methylPREDNISolone sod succ 125mg/2ml vial IV SCH ×4 (02:20→20:12)
[2019-03-16] MEDS: insulin regular, human vial - multi-dose SQ SCH ×4 (02:22→21:11)
[2019-03-16] MEDS: mineral oil/petrolatum ophthal oint EACHEYE SCH ×4 (02:22→20:12)
[2019-03-16] MEDS: ipratropium/albuterol 3ml nebule NEB SCH ×6 (02:34→22:33)
[2019-03-16 02:37] LABS: ALANINE AMINOTRANSFERASE 59 U/L (12-78); ALBUMIN 1.8 G/DL (3.4-5.0); ALBUMIN/GLOBULIN RATIO 0.6 (1.1-1.5); ALKALINE PHOSPHATASE 34 IU/L (46-116); ANION GAP 7 (8-16); ASPARTATE AMINO TRANSFERASE 41 U/L (10-37); BILIRUBIN,TOTAL 0.5 MG/DL (0.1-1.0); BLOOD UREA NITROGEN 76 MG/DL (7-18); BUN/CREATININE RATIO 55.5 (5.4-32.0); CALCIUM 7.7 MG/DL (8.5-10.1); CHLORIDE 114 MMOL/L (99-107); CREATININE 1.37 MG/DL (0.60-1.10); GLUCOSE 263 MG/DL (70-104); PHOSPHORUS 3.9 MG/DL (2.3-4.5); POTASSIUM 3.9 MMOL/L (3.5-5.1); PREALBUMIN 22.3 MG/DL (19-36); SODIUM 150 MMOL/L (135-145); TOTAL CARBON DIOXIDE 28.9 MMOL/L (24-32); eGFR 52 ML/MIN
[2019-03-16 03:18] LABS: BASOPHILS % (AUTO) 0 % (0-1); EOSINOPHILS % (AUTO) 0 % (0-6); HEMATOCRIT 40.8 % (42.0-52.0); HEMOGLOBIN 13.3 g/dl (14.0-17.9); LYMPHOCYTES # (AUTO) 0.3 X10'3 (1.1-4.8); LYMPHOCYTES % (AUTO) 7.2 % (21-51); MEAN CORPUSCULAR HEMOGLOBIN 28.9 PG (27.0-31.0); MEAN CORPUSCULAR HGB CONC 32.6 g/dL (33.0-36.5); MEAN CORPUSCULAR VOLUME 88.6 FL (78-98); MEAN PLATELET VOLUME 9.6 FL (7.4-10.4); MONOCYTES # (AUTO) 0.8 X10'3 (0-0.9); MONOCYTES % (AUTO) 19.7 % (2-12); NEUTROPHILS # (AUTO) 3.1 X10'3 (1.8-7.7); NEUTROPHILS % (AUTO) 73.1 % (42-75); PLATELET COUNT 169 X10'3 (140-440); RED CELL DISTRIBUTION WIDTH 14.4 % (11.5-14.5); WHITE BLOOD COUNT 4.3 X10'3 (4.5-11.0)
[2019-03-16 03:30] LABS: ABG BASE EXCESS 2.2 mmol/L (-2.0-3.0); ABG OXYGEN SATURATION 91.4 % (95-98); ABG PCO2 (T) 35.3 mmHg (35.0-45.0); ABG PH (T) 7.473 (7.350-7.450); ABG PO2 (T) 62.2 mmHg (83-108); ALLEN'S TEST Positive; FCOHb 0.2 % (0.5-1.5); FMetHb 0.2 % (0.3-1.12); MINUTE VOLUME 15 L/min; PATIENT TEMPERATURE 38.2; PEEP 5 cm H2O; RESPIRATORY RATE 16 b/min; RESPIRATORY RATE (OBSERVED) 24 b/min; TIDAL VOLUME 600 mL; TOTAL HEMOGLOBIN 14.1 G/dl (14.0-17.9)
--- NOTE | 2019-03-16 06:12 | NUR ---
Patient in room CICU 2009. I have received report from Aarti LAKE and had the opportunity to ask questions and assume patient care.
--- NOTE | 2019-03-16 06:13 | NUR ---
report given to rec rn plan of care reviewed
[2019-03-16 07:05] LABS: PLATELET ESTIMATE NORMAL; TOTAL CELLS COUNTED 100
[2019-03-16] MEDS: K, MAG and/or Phos replacement - Verify level? MC SCH (08:00)
[2019-03-16] MEDS: lisinopril 20mg tablet OGT SCH (08:06)
[2019-03-16] MEDS: furosemide 40 MG/4 ML oral solution UD cup OGT SCH (08:06)
[2019-03-16] MEDS: ESOMEPRAZOLE 40 MG VIAL IV SCH (08:06)
[2019-03-16] MEDS: atorvastatin 20mg tablet OGT SCH (08:07)
[2019-03-16] MEDS: busPIRone 5mg tablet OGT SCH ×2 (08:07→21:07)
[2019-03-16] MEDS: clopidogrel 75mg tablet OGT SCH (08:07)
[2019-03-16] MEDS: aspirin 81mg tab.chew OGT SCH (08:07)
[2019-03-16] MEDS: lactobacillus rhamnosus 10,000 MMU CELLS/CAPSULE PO SCH ×2 (08:07→20:12)
[2019-03-16] MEDS: carVEDilol 12.5mg tablet OGT SCH ×2 (08:07→20:12)
[2019-03-16] MEDS: enoxaparin 100mg/ml syringe SUBCUT SCH ×2 (08:08→20:13)
[2019-03-16] MEDS: acetaminophen 325mg/10.15ml oral unit dose solution OGT PRN ×2 (13:43→21:07)
[2019-03-16] MEDS: diltiazem-NS 100mg/100ml 100 ML IV SCH (13:45)
--- NOTE | 2019-03-16 15:14 | NUR ---
Patient currently on 80%Fi02 and PEEP of 10, still desating down to low 80s whether he turns or not. Bagged with RT at bedside and patient returned to low 90s%. Currently breathing at 36, HR in 110s-130s Afib, and Dr. Zuniga aware.
[2019-03-16] MEDS ORDERED: amiodarone 150mg/dext, iso-os 100 ML IV ONE (15:45)
[2019-03-16] MEDS: amiodarone/D5 360MG/200ML BAG 200 ML IV SCH ×2 (16:09→22:52)
[2019-03-16] MEDS: normal saline 1000ml 1,000 ML IV SCH (16:55)
[2019-03-16 17:11] LABS: ABG BASE EXCESS 0.7 mmol/L (-2.0-3.0); ABG HCO3 23.3 mmol/L (22.0-26.0); ABG OXYGEN SATURATION 93.8 % (95-98); ABG PCO2 (T) 33.1 mmHg (35.0-45.0); ABG PO2 (T) 70.6 mmHg (83-108); FCOHb 0.3 % (0.5-1.5); FMetHb 0.1 % (0.3-1.12); FO2Hb 93.4 % (94-100); MINUTE VOLUME 22 L/min; PATIENT TEMPERATURE 38.1; PEEP 10 cm H2O; RESPIRATORY RATE 16 b/min; RESPIRATORY RATE (OBSERVED) 38 b/min; TIDAL VOLUME 500 mL; TOTAL HEMOGLOBIN 13.7 G/dl (14.0-17.9)
--- NOTE | 2019-03-16 17:36 | NUR ---
Amiodarone started per Dr. Zuniga's orders; will also maintain [id number] between 88-90%, no higher and will begin titrating Cardiezem down now that Amiodarone is started.
--- NOTE | 2019-03-16 18:20 | NUR ---
Problems reprioritized. Patient report given, questions answered & plan of care reviewed with Aarti LAKE.
--- NOTE | 2019-03-16 18:45 | NUR ---
I have received report and assumed care of pt, pt resting in bed and friend at bedside assessment complete, plan of care reviewed. asked multiple questions, reviewed labs ventilator settings and pts condition with her. tearful but does not think the pt would want roasterman rehab or to have a tracheostomy. Her feelings validated. She is encouraged to ask the md questions regarding prognosis and probable recovery
[2019-03-16 19:00] LABS: ABG BASE EXCESS 2.1 mmol/L (-2.0-3.0); ABG HCO3 24.9 mmol/L (22.0-26.0); ABG OXYGEN SATURATION 89.4 % (95-98); ABG PCO2 (T) 35.2 mmHg (35.0-45.0); ABG PH (T) 7.473 (7.350-7.450); ABG PO2 (T) 57.4 mmHg (83-108); ALLEN'S TEST Positive; FCOHb 0.1 % (0.5-1.5); FMetHb 0.1 % (0.3-1.12); FO2Hb 89.2 % (94-100); MINUTE VOLUME 20 L/min; PATIENT TEMPERATURE 38.2; PEEP 10 cm H2O; RESPIRATORY RATE 16 b/min; RESPIRATORY RATE (OBSERVED) 34 b/min; TIDAL VOLUME 500 mL; TOTAL HEMOGLOBIN 13.7 G/dl (14.0-17.9)
--- NOTE | 2019-03-16 19:40 | NUR ---
abg obtained due to pts sats 82-86% FIO2 increased to 85% see nursing flow sheet for titration. pt remains in afib flutter rate varying 10-160 Cardizem titrated as tolerated
[2019-03-16 21:06] LABS: ABG BASE EXCESS 1.2 mmol/L (-2.0-3.0); ABG HCO3 23.9 mmol/L (22.0-26.0); ABG OXYGEN SATURATION 93.3 % (95-98); ABG PCO2 (T) 34.6 mmHg (35.0-45.0); ABG PH (T) 7.464 (7.350-7.450); ABG PO2 (T) 72.3 mmHg (83-108); ALLEN'S TEST Positive; FCOHb 0.3 % (0.5-1.5); FMetHb 0.2 % (0.3-1.12); FO2Hb 92.8 % (94-100); MINUTE VOLUME 22 L/min; PATIENT TEMPERATURE 38.4; PEEP 10 cm H2O; RESPIRATORY RATE 16 b/min; RESPIRATORY RATE (OBSERVED) 39 b/min; TIDAL VOLUME 500 mL; TOTAL HEMOGLOBIN 14.1 G/dl (14.0-17.9)
[2019-03-16] MEDS: insulin glargine (Lantus) pen - multi-dose SQ SCH (21:10)
[2019-03-17] VITALS (24 sets, daily range): BP systolic 67–141; BP diastolic 40–88
[2019-03-17] MEDS: methylPREDNISolone sod succ 125mg/2ml vial IV SCH ×2 (02:14→07:32)
[2019-03-17] MEDS: mineral oil/petrolatum ophthal oint EACHEYE SCH ×4 (02:14→20:36)
[2019-03-17] MEDS: LORazepam 2 mg/ml vial IV SCH ×2 (02:14→07:37)
[2019-03-17] MEDS: ipratropium/albuterol 3ml nebule NEB SCH ×6 (02:35→22:28)
[2019-03-17] MEDS: insulin regular, human vial - multi-dose SQ SCH ×4 (02:53→20:49)
[2019-03-17] MEDS: diltiazem-NS 100mg/100ml 100 ML IV SCH (02:55)
[2019-03-17 03:06] LABS: BASOPHILS % (AUTO) 0.1 % (0-1); EOSINOPHILS % (AUTO) 0 % (0-6); HEMATOCRIT 39.1 % (42.0-52.0); HEMOGLOBIN 12.9 g/dl (14.0-17.9); LYMPHOCYTES # (AUTO) 0.3 X10'3 (1.1-4.8); LYMPHOCYTES % (AUTO) 9.7 % (21-51); MEAN CORPUSCULAR HGB CONC 32.9 g/dL (33.0-36.5); MEAN CORPUSCULAR VOLUME 88.3 FL (78-98); MEAN PLATELET VOLUME 10.5 FL (7.4-10.4); MONOCYTES # (AUTO) 0.7 X10'3 (0-0.9); MONOCYTES % (AUTO) 20.1 % (2-12); NEUTROPHILS # (AUTO) 2.5 X10'3 (1.8-7.7); NEUTROPHILS % (AUTO) 70.1 % (42-75); PLATELET COUNT 174 X10'3 (140-440); RED BLOOD COUNT 4.43 X10'6 (4.70-6.10); RED CELL DISTRIBUTION WIDTH 14.4 % (11.5-14.5); WHITE BLOOD COUNT 3.5 X10'3 (4.5-11.0)
[2019-03-17 03:23] LABS: ALANINE AMINOTRANSFERASE 91 U/L (12-78); ALBUMIN 1.7 G/DL (3.4-5.0); ALBUMIN/GLOBULIN RATIO 0.5 (1.1-1.5); ALKALINE PHOSPHATASE 31 IU/L (46-116); ANION GAP 9 (8-16); ASPARTATE AMINO TRANSFERASE 55 U/L (10-37); BILIRUBIN,TOTAL 0.4 MG/DL (0.1-1.0); BLOOD UREA NITROGEN 92 MG/DL (7-18); BUN/CREATININE RATIO 54.1 (5.4-32.0); CALCIUM 7.9 MG/DL (8.5-10.1); CHLORIDE 114 MMOL/L (99-107); GLUCOSE 211 MG/DL (70-104); MAGNESIUM 2.2 MG/DL (1.5-2.4); PHOSPHORUS 3.8 MG/DL (2.3-4.5); POTASSIUM 3.6 MMOL/L (3.5-5.1); SODIUM 151 MMOL/L (135-145); TOTAL CARBON DIOXIDE 28.4 MMOL/L (24-32); TOTAL PROTEIN 5.2 G/DL (6.4-8.2); eGFR 41 ML/MIN
[2019-03-17] MEDS: amiodarone/D5 360MG/200ML BAG 200 ML IV SCH ×4 (04:13→22:13)
[2019-03-17 04:30] LABS: ABG BASE EXCESS 2.3 mmol/L (-2.0-3.0); ABG HCO3 25.7 mmol/L (22.0-26.0); ABG OXYGEN SATURATION 97.6 % (95-98); ABG PH (T) 7.453 (7.350-7.450); ALLEN'S TEST Positive; FCOHb 0.3 % (0.5-1.5); FMetHb 0.1 % (0.3-1.12); FO2Hb 97.2 % (94-100); MINUTE VOLUME 18 L/min; PATIENT TEMPERATURE 38.2; PEEP 10 cm H2O; RESPIRATORY RATE 16 b/min; RESPIRATORY RATE (OBSERVED) 28 b/min; TIDAL VOLUME 500 mL; TOTAL HEMOGLOBIN 13.7 G/dl (14.0-17.9)
--- NOTE | 2019-03-17 06:27 | NUR ---
Patient in room ICU 2039. I have received report from Aarti LAKE and had the opportunity to ask questions and assume patient care.
[2019-03-17] MEDS: K, MAG and/or Phos replacement - Verify level? MC SCH (06:58)
[2019-03-17] MEDS: acetaminophen 325mg/10.15ml oral unit dose solution OGT PRN (07:29)
[2019-03-17] MEDS: ESOMEPRAZOLE 40 MG VIAL IV SCH (07:33)
[2019-03-17] MEDS: enoxaparin 100mg/ml syringe SUBCUT SCH ×2 (07:34→20:33)
[2019-03-17] MEDS: furosemide 40 MG/4 ML oral solution UD cup OGT SCH (07:36)
[2019-03-17] MEDS: clopidogrel 75mg tablet OGT SCH (07:36)
[2019-03-17] MEDS: lisinopril 20mg tablet OGT SCH (07:36)
[2019-03-17] MEDS: lactobacillus rhamnosus 10,000 MMU CELLS/CAPSULE PO SCH ×2 (07:36→20:32)
[2019-03-17] MEDS: carVEDilol 12.5mg tablet OGT SCH (07:36)
[2019-03-17] MEDS: atorvastatin 20mg tablet OGT SCH (07:36)
[2019-03-17] MEDS: aspirin 81mg tab.chew OGT SCH (07:36)
[2019-03-17] MEDS: busPIRone 5mg tablet OGT SCH ×2 (07:36→20:32)
[2019-03-17] MEDS ORDERED: NORepinephrine 8mg/ 250ml NS 250 ML IV ONE (09:23)
--- NOTE | 2019-03-17 09:58 | NUR ---
Patient BP began to drop to low 60s/40s and patient became tachypneic. Laid patient flat and elevated legs; BP elevated back to low 70s sys however did not maintain. Spoke with Dr. Zuniga and started Levophed. Patient is currently low 90s systolically and is perfusing better.
[2019-03-17] MEDS ORDERED: normal saline 1000ml 1,000 ML IVB ONE (10:02)
--- NOTE | 2019-03-17 12:01 | NUR ---
reassessment: Pt tolerating TF at goal; residuals WNL. No BM yet since admit receiving no bowel care. RITIKA d/w JAYA dulcoloax PRN ordered. Pt has 0 GRV. Water flushes increased to 200ml Q4 per MD w/ Na 151. Will continue to monitor for additional bowel care needs. Rec: 1. Continuous tube feeding with Vital High Protein at 105ml/hr goal, start at 30 ml/hr and advance by 30 ml q 8 hours to goal rate; to provide 2520ml fluid, 2520kcals, 2117ml free water, and 221g protein. 2. Additional water flush 150ml Q4 3. Prealbumin Q /, daily wts 4. routine bowel care no BM 10 days Addendum: 03/17/19 at [address] Amended: Links added.
[2019-03-17] MEDS: methylPREDNISolone sod succ/PF 40mg inj. IV SCH ×2 (14:14→20:32)
[2019-03-17] MEDS ORDERED: LORazepam 2 mg/ml vial IV SCH (16:25)
--- NOTE | 2019-03-17 18:20 | NUR ---
Patient in room ICU 2039. I have received report from Donita LAKE and had the opportunity to ask questions and assume patient care. Pt on vent with Fio2 at 60% and PEEP 10, spo2 at 93%, Amiodarone gtt for afib infusing per provider orders via central line. See IV flowsheet and interventions for further information. All monitoring alarms audible. Will continue to monitor.
--- NOTE | 2019-03-17 18:27 | NUR ---
Problems reprioritized. Patient report given, questions answered & plan of care reviewed with Karena LAKE.
[2019-03-17] MEDS: insulin glargine (Lantus) pen - multi-dose SQ SCH (20:47)
[2019-03-18] VITALS (27 sets, daily range): BP systolic 67–182; BP diastolic 44–99
[2019-03-18] MEDS: ipratropium/albuterol 3ml nebule NEB SCH ×5 (02:23→19:06)
[2019-03-18] MEDS: mineral oil/petrolatum ophthal oint EACHEYE SCH ×4 (02:24→21:11)
[2019-03-18] MEDS: methylPREDNISolone sod succ/PF 40mg inj. IV SCH ×2 (02:24→07:23)
[2019-03-18] MEDS: insulin regular, human vial - multi-dose SQ SCH ×4 (02:28→21:25)
[2019-03-18 02:58] LABS: BASOPHILS % (AUTO) 0.1 % (0-1); EOSINOPHILS % (AUTO) 0 % (0-6); HEMATOCRIT 37.1 % (42.0-52.0); HEMOGLOBIN 12.3 g/dl (14.0-17.9); LYMPHOCYTES # (AUTO) 0.3 X10'3 (1.1-4.8); LYMPHOCYTES % (AUTO) 10.9 % (21-51); MEAN CORPUSCULAR HGB CONC 33.2 g/dL (33.0-36.5); MEAN CORPUSCULAR VOLUME 87.3 FL (78-98); MEAN PLATELET VOLUME 9.7 FL (7.4-10.4); MONOCYTES # (AUTO) 0.8 X10'3 (0-0.9); MONOCYTES % (AUTO) 27.4 % (2-12); NEUTROPHILS # (AUTO) 1.7 X10'3 (1.8-7.7); NEUTROPHILS % (AUTO) 61.6 % (42-75); PLATELET COUNT 157 X10'3 (140-440); RED BLOOD COUNT 4.24 X10'6 (4.70-6.10); RED CELL DISTRIBUTION WIDTH 14.3 % (11.5-14.5); WHITE BLOOD COUNT 2.8 X10'3 (4.5-11.0)
[2019-03-18 03:00] LABS: ALANINE AMINOTRANSFERASE 114 U/L (12-78); ALBUMIN 1.5 G/DL (3.4-5.0); ALBUMIN/GLOBULIN RATIO 0.4 (1.1-1.5); ALKALINE PHOSPHATASE 33 IU/L (46-116); ANION GAP 9 (8-16); ASPARTATE AMINO TRANSFERASE 66 U/L (10-37); BILIRUBIN,TOTAL 0.3 MG/DL (0.1-1.0); CALCIUM 7.9 MG/DL (8.5-10.1); CHLORIDE 114 MMOL/L (99-107); CREATININE 1.65 MG/DL (0.60-1.10); GLUCOSE 189 MG/DL (70-104); MAGNESIUM 2.3 MG/DL (1.5-2.4); PHOSPHORUS 3.3 MG/DL (2.3-4.5); POTASSIUM 3.6 MMOL/L (3.5-5.1); SODIUM 151 MMOL/L (135-145); TOTAL CARBON DIOXIDE 28.4 MMOL/L (24-32); eGFR 42 ML/MIN
[2019-03-18 03:08] LABS: BLOOD UREA NITROGEN 101 MG/DL (7-18); BUN/CREATININE RATIO 61.2 (5.4-32.0)
[2019-03-18 03:28] LABS: BANDS% (MANUAL) 2 % (0-10); LYMPHOCYTES % (MANUAL) 6 % (21-51); MONOCYTES % (MANUAL) 26 % (2-12); NEUTROPHILS % (MANUAL) 66 % (42-75); TOTAL CELLS COUNTED 100
[2019-03-18 03:29] LABS: BURR CELLS 2+; PLATELET ESTIMATE NORMAL
[2019-03-18 03:50] LABS: ABG BASE EXCESS 2.9 mmol/L (-2.0-3.0); ABG HCO3 26.3 mmol/L (22.0-26.0); ABG OXYGEN SATURATION 95.2 % (95-98); ABG PH (T) 7.462 (7.350-7.450); ABG PO2 (T) 78.2 mmHg (83-108); ALLEN'S TEST Positive; FCOHb 0.3 % (0.5-1.5); FMetHb 0.1 % (0.3-1.12); FO2Hb 94.8 % (94-100); MINUTE VOLUME 12 L/min; PEEP 10 cm H2O; RESPIRATORY RATE 16 b/min; RESPIRATORY RATE (OBSERVED) 23 b/min; TIDAL VOLUME 500 mL; TOTAL HEMOGLOBIN 12.8 G/dl (14.0-17.9)
[2019-03-18] MEDS: amiodarone/D5 360MG/200ML BAG 200 ML IV SCH ×4 (04:29→20:25)
--- NOTE | 2019-03-18 06:14 | NUR ---
Problems reprioritized. Patient report given, questions answered & plan of care reviewed with Donita LAKE.
--- NOTE | 2019-03-18 06:27 | NUR ---
Patient in room ICU 2039. I have received report from Karena LAKE and had the opportunity to ask questions and assume patient care.
[2019-03-18] MEDS: ESOMEPRAZOLE 40 MG VIAL IV SCH (07:23)
[2019-03-18] MEDS: acetaminophen 325mg/10.15ml oral unit dose solution OGT PRN ×3 (07:23→23:57)
[2019-03-18] MEDS: atorvastatin 20mg tablet OGT SCH (07:24)
[2019-03-18] MEDS: clopidogrel 75mg tablet OGT SCH (07:24)
[2019-03-18] MEDS: busPIRone 5mg tablet OGT SCH ×2 (07:24→21:11)
[2019-03-18] MEDS: aspirin 81mg tab.chew OGT SCH (07:24)
[2019-03-18] MEDS: lactobacillus rhamnosus 10,000 MMU CELLS/CAPSULE PO SCH (07:24)
[2019-03-18] MEDS: enoxaparin 100mg/ml syringe SUBCUT SCH ×2 (07:25→21:11)
[2019-03-18] MEDS: K, MAG and/or Phos replacement - Verify level? MC SCH (08:00)
[2019-03-18] MEDS: digoxin 250mcg/ml 2ml ampule IV SCH ×3 (09:45→23:57)
--- NOTE | 2019-03-18 10:54 | NUR ---
Spoke to [facility] as patient has brain injury; Reference Number is [id number]
[2019-03-18 13:00] LABS: CLARITY,URINE SLIGHTLY CLOUDY (Clear); COLOR,URINE YELLOW (Yellow); GLUCOSE, URINE NEGATIVE (Neg); KETONES,URINE NEGATIVE (Neg); LEUKOCYTE ESTERASE ,URINE NEGATIVE (Neg); NITRITES, URINE NEGATIVE (Neg); OCCULT BLOOD,URINE LARGE (Neg); PROTEIN,URINE 30 mg/dl (Neg)
[2019-03-18 13:08] LABS: UA COLLECTION TYPE NON-SPECIFIED
[2019-03-18 13:09] LABS: MUCUS STRANDS FEW /LPF (Neg); SQUAMOUS EPITHELIAL CELL,UR FEW /LPF (FEW)
[2019-03-18 13:10] LABS: RBC,URINE 50-100 /HPF (0-2)
[2019-03-18 13:12] LABS: BACTERIA,URINE 2+ /HPF (Neg)
[2019-03-18 13:13] LABS: COARSE GRANULAR CAST 0-3 /LPF (NEGATIVE); HYALINE CASTS 0-3 /LPF (NEGATIVE)
[2019-03-18 13:15] LABS: RENAL CELLS, URINE FEW /HPF
--- NOTE | 2019-03-18 13:40 | NUR ---
Levophed restarted as patient BP had dropped from 170s sys to high 70s with a MAP of 55. Levo restarted at 10mcg; titrating accordingly.
[2019-03-18 14:30] LABS: UA EOSINOPHILS NO EOS /HPF
[2019-03-18] MEDS: normal saline 1000ml 1,000 ML IV SCH (16:47)
--- NOTE | 2019-03-18 18:28 | NUR ---
Problems reprioritized. Patient report given, questions answered & plan of care reviewed with Jazmín LAKE.
--- NOTE | 2019-03-18 18:29 | NUR ---
Patient in room ICU 2039. I have received report from JAYA Duckworth and had the opportunity to ask questions and assume patient care.
--- NOTE | 2019-03-18 18:50 | NUR ---
Dr. Houston at bedside.
[2019-03-18] MEDS: insulin glargine (Lantus) pen - multi-dose SQ SCH (21:27)
--- NOTE | 2019-03-18 23:54 | NUR ---
Called to pt's bedside to check ventilator as RN called me to bedside to see if it was the vent. Pt found to have paradoxical breathing at a rate 60, with auto-peeping due to rapid breathing. Placed pt on spontaneous rate to see if this would help the pt's breathing, but he is still breathing in the 60's. Heart rate up to 172 at times, but anywhere from 140'2-170's. Albuterol nebulizer not given. RN aware of vent change and missed breathing tx. Will cont to monitor. Addendum: 03/19/19 at 0000 by Ryann Coppola RT Amended: Links added.
[2019-03-19] VITALS (24 sets, daily range): BP systolic 78–150; BP diastolic 42–117
[2019-03-19] MEDS ORDERED: morphine 4 MG/ML inj SYRINge IV ONE (00:20)
--- NOTE | 2019-03-19 00:20 | NUR ---
Called Cam Dai NP re: patients heart rate in the 160's-170's Respiratory rate in the 50's. Patient is still getting his tidal volumes however is not calming down. Order for 4 mg Morphine IV ONCE
--- NOTE | 2019-03-19 01:00 | NUR ---
Phone call to Cam Dai NP re: heart rate continuing to be 150's-160's with occasional increases to the 170's. Patients temperature 39.5 after PO Tylenol and ice packs to axilla and femoral arteries. Patients respiratory rate 30's. Blood pressure 74/50. New order for Levophed per protocol. No other orders at this time.
[2019-03-19] MEDS: NORepinephrine 8mg/ 250ml NS 250 ML IV SCH ×2 (01:58→16:54)
[2019-03-19] MEDS: mineral oil/petrolatum ophthal oint EACHEYE SCH ×4 (02:02→20:12)
[2019-03-19] MEDS: insulin regular, human vial - multi-dose SQ SCH ×4 (02:22→20:26)
[2019-03-19 02:24] LABS: WHITE BLOOD COUNT 2.2 X10'3 (4.5-11.0)
[2019-03-19 02:25] LABS: HEMATOCRIT 38.5 % (42.0-52.0); HEMOGLOBIN 12.9 g/dl (14.0-17.9); MEAN CORPUSCULAR HEMOGLOBIN 29.4 PG (27.0-31.0); MEAN CORPUSCULAR HGB CONC 33.4 g/dL (33.0-36.5); MEAN CORPUSCULAR VOLUME 88.2 FL (78-98); MEAN PLATELET VOLUME 10.2 FL (7.4-10.4); PLATELET COUNT 172 X10'3 (140-440); RED BLOOD COUNT 4.37 X10'6 (4.70-6.10); RED CELL DISTRIBUTION WIDTH 14.7 % (11.5-14.5)
[2019-03-19 02:41] LABS: ALANINE AMINOTRANSFERASE 269 U/L (12-78); ALBUMIN 1.4 G/DL (3.4-5.0); ALBUMIN/GLOBULIN RATIO 0.4 (1.1-1.5); ALKALINE PHOSPHATASE 54 IU/L (46-116); ANION GAP 10 (8-16); ASPARTATE AMINO TRANSFERASE 138 U/L (10-37); BILIRUBIN,TOTAL 0.5 MG/DL (0.1-1.0); BLOOD UREA NITROGEN 105 MG/DL (7-18); CALCIUM 7.7 MG/DL (8.5-10.1); CHLORIDE 115 MMOL/L (99-107); CREATININE 2.02 MG/DL (0.60-1.10); GLUCOSE 155 MG/DL (70-104); MAGNESIUM 2.1 MG/DL (1.5-2.4); PHOSPHORUS 2.7 MG/DL (2.3-4.5); POTASSIUM 3.6 MMOL/L (3.5-5.1); PREALBUMIN 17.6 MG/DL (19-36); SODIUM 152 MMOL/L (135-145); TOTAL CARBON DIOXIDE 26.6 MMOL/L (24-32); TOTAL PROTEIN 4.9 G/DL (6.4-8.2); eGFR 34 ML/MIN
[2019-03-19 03:16] LABS: PLATELET ESTIMATE NORMAL; TOTAL CELLS COUNTED 100
[2019-03-19 03:17] LABS: BURR CELLS 2+; ELLIPTOCYTES 1+
[2019-03-19 04:21] LABS: ABG HCO3 23.5 mmol/L (22.0-26.0); ABG OXYGEN SATURATION 93.9 % (95-98); ABG PCO2 (T) 34.1 mmHg (35.0-45.0); ABG PH (T) 7.463 (7.350-7.450); ABG PO2 (T) 74.2 mmHg (83-108); ALLEN'S TEST Positive; FCOHb 0.5 % (0.5-1.5); FMetHb 0.2 % (0.3-1.12); FO2Hb 93.2 % (94-100); MINUTE VOLUME 14 L/min; PATIENT TEMPERATURE 38.8; PEEP 10 cm H2O; RESPIRATORY RATE 16 b/min; RESPIRATORY RATE (OBSERVED) 30 b/min; TIDAL VOLUME 500 mL; TOTAL HEMOGLOBIN 13.9 G/dl (14.0-17.9)
[2019-03-19] MEDS: amiodarone/D5 360MG/200ML BAG 200 ML IV SCH ×4 (04:45→20:10)
--- NOTE | 2019-03-19 06:25 | NUR ---
Problems reprioritized. Patient report given, questions answered & plan of care reviewed with JAYA Sims.
--- NOTE | 2019-03-19 06:44 | NUR ---
Patient in room ICU 2039. I have received report from JAYA Noyola and had the opportunity to ask questions and assume patient care.
[2019-03-19] MEDS: ipratropium/albuterol 3ml nebule NEB SCH ×5 (07:47→23:01)
[2019-03-19] MEDS: K, MAG and/or Phos replacement - Verify level? MC SCH (08:00)
[2019-03-19] MEDS: ESOMEPRAZOLE 40 MG VIAL IV SCH (08:04)
[2019-03-19] MEDS: atorvastatin 20mg tablet OGT SCH (08:04)
[2019-03-19] MEDS: digoxin 250mcg/ml 2ml ampule IV SCH (08:04)
[2019-03-19] MEDS: clopidogrel 75mg tablet OGT SCH (08:04)
[2019-03-19] MEDS: busPIRone 5mg tablet OGT SCH ×2 (08:05→20:12)
[2019-03-19] MEDS: aspirin 81mg tab.chew OGT SCH (08:05)
[2019-03-19] MEDS: enoxaparin 100mg/ml syringe SUBCUT SCH ×2 (08:07→20:11)
--- NOTE | 2019-03-19 10:43 | NUR ---
PEEP changed to [address] Zuniga order.
[2019-03-19] MEDS: acetaminophen 325mg/10.15ml oral unit dose solution OGT PRN ×2 (16:06→23:36)
--- NOTE | 2019-03-19 18:20 | NUR ---
Patient in room ICU 2039. I have received report from JAYA Sims and JAYA Hurt and had the opportunity to ask questions and assume patient care.
[2019-03-19] MEDS: insulin glargine (Lantus) pen - multi-dose SQ SCH (20:27)
[2019-03-19] MEDS: normal saline 1000ml 1,000 ML IV SCH (21:51)
--- NOTE | 2019-03-19 23:00 | NUR ---
While turning patient for bed bath. Patient had increased respiratory rate to the 40's-50's, heart rate increased to 160's and briefly to the 170's. Patients temperature increased to 38.6 after bed bath turning, Tylenol administered via NG tube and ice packs to groin and axilla. Patient with irregular breathing pattern with care activities. Patient yawning. Response to deep pain stimuli patient with decorticate posturing when stimulated on the right side, patient with minimal reaction to the left side.
[2019-03-20] VITALS (15 sets, daily range): BP systolic 91–141; BP diastolic 31–74
[2019-03-20] MEDS: mineral oil/petrolatum ophthal oint EACHEYE SCH ×2 (02:02→08:02)
[2019-03-20] MEDS: ipratropium/albuterol 3ml nebule NEB SCH ×3 (02:40→11:13)
[2019-03-20 02:41] LABS: HEMOGLOBIN 11.4 g/dl (14.0-17.9); LYMPHOCYTES # (AUTO) 0.4 X10'3 (1.1-4.8); LYMPHOCYTES % (AUTO) 6.9 % (21-51); MONOCYTES # (AUTO) 0.3 X10'3 (0-0.9); NEUTROPHILS # (AUTO) 4.9 X10'3 (1.8-7.7); PLATELET COUNT 133 X10'3 (140-440); WHITE BLOOD COUNT 5.6 X10'3 (4.5-11.0)
[2019-03-20 02:43] LABS: BASOPHILS % (AUTO) 0.2 % (0-1); EOSINOPHILS % (AUTO) 0.1 % (0-6); HEMATOCRIT 33.7 % (42.0-52.0); MEAN CORPUSCULAR HEMOGLOBIN 29.5 PG (27.0-31.0); MEAN CORPUSCULAR VOLUME 86.7 FL (78-98); MEAN PLATELET VOLUME 10.1 FL (7.4-10.4); MONOCYTES % (AUTO) 4.6 % (2-12); NEUTROPHILS % (AUTO) 88.2 % (42-75); RED BLOOD COUNT 3.89 X10'6 (4.70-6.10); RED CELL DISTRIBUTION WIDTH 14.5 % (11.5-14.5)
[2019-03-20] MEDS: insulin regular, human vial - multi-dose SQ SCH ×2 (02:55→09:12)
[2019-03-20 02:57] LABS: ALANINE AMINOTRANSFERASE 156 U/L (12-78); ALBUMIN 1.1 G/DL (3.4-5.0); ALBUMIN/GLOBULIN RATIO 0.3 (1.1-1.5); ALKALINE PHOSPHATASE 54 IU/L (46-116); ANION GAP 8 (8-16); ASPARTATE AMINO TRANSFERASE 69 U/L (10-37); BILIRUBIN,TOTAL 0.4 MG/DL (0.1-1.0); BLOOD UREA NITROGEN 119 MG/DL (7-18); BUN/CREATININE RATIO 57.8 (5.4-32.0); CALCIUM 7.3 MG/DL (8.5-10.1); CHLORIDE 114 MMOL/L (99-107); CREATININE 2.06 MG/DL (0.60-1.10); GLUCOSE 195 MG/DL (70-104); PHOSPHORUS 3.2 MG/DL (2.3-4.5); POTASSIUM 3.3 MMOL/L (3.5-5.1); SODIUM 148 MMOL/L (135-145); TOTAL CARBON DIOXIDE 26.5 MMOL/L (24-32); TOTAL PROTEIN 4.8 G/DL (6.4-8.2); eGFR 33 ML/MIN
[2019-03-20 03:11] LABS: ABG BASE EXCESS 0.7 mmol/L (-2.0-3.0); ABG HCO3 22.8 mmol/L (22.0-26.0); ABG OXYGEN SATURATION 93.1 % (95-98); ABG PCO2 (T) 30.6 mmHg (35.0-45.0); ABG PH (T) 7.495 (7.350-7.450); ABG PO2 (T) 69.3 mmHg (83-108); ALLEN'S TEST Positive; FCOHb 0.3 % (0.5-1.5); FMetHb 0.1 % (0.3-1.12); FO2Hb 92.7 % (94-100); MINUTE VOLUME 18 L/min; PATIENT TEMPERATURE 38.3; PEEP 5 cm H2O; RESPIRATORY RATE 16 b/min; RESPIRATORY RATE (OBSERVED) 31 b/min; TIDAL VOLUME 500 mL; TOTAL HEMOGLOBIN 11.8 G/dl (14.0-17.9)
[2019-03-20] MEDS: potassium Cl 20mEq/100mL bag 100 ML IV PRN ×2 (03:19→04:40)
[2019-03-20] MEDS: NORepinephrine 8mg/ 250ml NS 250 ML IV SCH (05:53)
[2019-03-20] MEDS: amiodarone/D5 360MG/200ML BAG 200 ML IV SCH (05:53)
--- NOTE | 2019-03-20 06:38 | NUR ---
Problems reprioritized. Patient report given, questions answered & plan of care reviewed with Tereza RN, JAYA Agudelo.
[2019-03-20] MEDS ORDERED: digoxin 250mcg/ml 2ml ampule IV SCH (08:00)
[2019-03-20] MEDS: atorvastatin 20mg tablet OGT SCH (08:02)
[2019-03-20] MEDS: aspirin 81mg tab.chew OGT SCH (08:02)
[2019-03-20] MEDS: ESOMEPRAZOLE 40 MG VIAL IV SCH (08:02)
[2019-03-20] MEDS: clopidogrel 75mg tablet OGT SCH (08:02)
[2019-03-20] MEDS: busPIRone 5mg tablet OGT SCH (08:02)
[2019-03-20] MEDS: enoxaparin 100mg/ml syringe SUBCUT SCH (08:07)
--- NOTE | 2019-03-20 12:55 | NUR ---
reassessment: Pt tolerating TF at goal; residuals WNL. LBM 03/18. Pt has GRV WNL. Water flushes increased to 250ml Q4 per MD, sodium down from 152 to 148. Intubated, not sedated. Will continue to monitor. Rec: 1. Continuous tube feeding with Vital High Protein at 105ml/hr goal, to provide 2520ml fluid, 2520kcals, 2117ml free water, and 221g protein. 2. Additional water flush 250ml Q4 3. Prealbumin Q /, daily wts 4. routine bowel care Addendum: 03/20/19 at [address] Amended: Links added.
[2019-03-20] MEDS ORDERED: morphine 4 MG/ML inj SYRINge IV PRN ×2 (13:35→15:55)
[2019-03-20] MEDS ORDERED: LORazepam 2 mg/ml vial IV PRN ×2 (13:35→15:55)
--- NOTE | 2019-03-20 16:07 | NUR ---
RN IS TO DOCUMENT YES TO ALL APPLICABLE AREAS Pronouncement of : 1. Time Physician Notified: 1607 2. Date of : 03/20/2019 3. Time of : 1607 4. DNR/Withdraw life support documented: Y 5. Monitor strip has been placed on chart: Y 6. Assessment process is of one-minute duration and includes following criteria: a) Patient is unresponsive to all stimuli: Y b) Pupils fixed and non-reactive: Y c) Auscultation of precordium reveals absence of heart tones: Y d) Auscultation of lungs reveals absence of breath sounds: Y e) Absence of blood pressure / all vital signs: Y f) QRS complexes are not present on monitor / EKG strip: Y g) Pacer spikes without capture: N/A 4. Comments:
--- NOTE | 2019-03-20 17:36 | NUR ---
Dr Zuniga spoke with the family ( and daughter), pt placed on comfort care per family decision. Extubated pt at 1540. Pt at 1607 while family was present in the room. Organ donor called before extubation and after . Per family called [facility] at 1718. Awaiting for the body to be transferred to [facility].
== END 2019-03-20 18:29 | disposition expired | DRG 207 ==
LOC: ER 11:48 → CICU 2S 13:14 → CMPBEDREQ 03-09 19:44 → ICU 2S 03-16 11:31
PROVIDERS: ADMIT Internal Medicine Critical Care Medicine; ATTEND Internal Medicine Critical Care Medicine
PROC: 5A1955Z Respiratory Ventilation, Greater than 96 Consecutive Hours (ICD-10-PCS; principal; 2019-03-07)
PROC: 0BH17EZ Insertion of Endotracheal Airway into Trachea, Via Natural or Artificial Opening (ICD-10-PCS; 2019-03-07)
PROC: 02HV33Z Insertion of Infusion Device into Superior Vena Cava, Percutaneous Approach (ICD-10-PCS; 2019-03-07)
PROC: 5A12012 Performance of Cardiac Output, Single, Manual (ICD-10-PCS; 2019-03-07)
PROC: 4A133B3 Monitoring of Arterial Pressure, Pulmonary, Percutaneous Approach (ICD-10-PCS; 2019-03-07)
PROC: B32T1ZZ Computerized Tomography (CT Scan) of Left Pulmonary Artery using Low Osmolar Contrast (ICD-10-PCS; 2019-03-08)
PROC: B32S1ZZ Computerized Tomography (CT Scan) of Right Pulmonary Artery using Low Osmolar Contrast (ICD-10-PCS; 2019-03-08)
PROC: 4A10X4Z Monitoring of Central Nervous Electrical Activity, External Approach (ICD-10-PCS; 2019-03-08)
PROC: BW281ZZ Computerized Tomography (CT Scan) of Head using Low Osmolar Contrast (ICD-10-PCS; 2019-03-12)
PROC: 4A10X4Z Monitoring of Central Nervous Electrical Activity, External Approach (ICD-10-PCS; 2019-03-12)
DX: J96.02 Acute respiratory failure with hypercapnia (principal); S22.43XA Multiple fractures of ribs, bilateral, initial encounter for closed fracture; G93.1 Anoxic brain damage, not elsewhere classified; Z68.42 Body mass index [BMI] 45.0-49.9, adult; N17.9 Acute kidney failure, unspecified; J98.11 Atelectasis; I46.9 Cardiac arrest, cause unspecified; J96.01 Acute respiratory failure with hypoxia; E66.01 Morbid (severe) obesity due to excess calories; E11.9 Type 2 diabetes mellitus without complications; F12.90 Cannabis use, unspecified, uncomplicated; I27.20 Pulmonary hypertension, unspecified; R56.9 Unspecified convulsions; I11.0 Hypertensive heart disease with heart failure; W18.39XA Other fall on same level, initial encounter; I50.9 Heart failure, unspecified; I48.91 Unspecified atrial fibrillation; J44.9 Chronic obstructive pulmonary disease, unspecified; Z51.5 Encounter for palliative care; Z95.5 Presence of coronary angioplasty implant and graft; Z79.82 Long term (current) use of aspirin; Z79.4 Long term (current) use of insulin; Z79.84 Long term (current) use of oral hypoglycemic drugs; Y93.89 Activity, other specified; Y92.89 Other specified places as the place of occurrence of the external cause; Y99.8 Other external cause status
CPT/HCPCS: 36415; 36556; 36600; 70450; 70460; 70470; 71045; 71275; 74018; 80047; 80048; 80053; 80177; 80202; 81001; 82150; 82330; 82550; 82553; 82570; 82803; 82810; 82948; 83036; 83605; 83690; 83735; 83880; 84100; 84134; 84145; 84300; 84439; 84443; 84478; 84484; 85018; 85025; 85379; 85610; 85730; 86140; 87040; 87070; 87081; 87088; 87207; 93005; 93308; 93970; 94002; 94003; 94640; 94760; 95816; 96365; 99291; G0378; J0171; J0282; J0696; J1160; J1650; J1815; J1940; J1953; J2060; J2212; J2250; J2270; J2704; J2765; J2920; J2930; J3010; J3370; J3475; J3480; J3490; J7040; J7060; J7611; Q9967